=== PATIENT | female | born 1960 | race Caucasian/White ===

== ENCOUNTER 2019-12-09 13:57 | Emergency (ER) | payer OTHER, SELFPAY ==
[2019-12-09 14:19] VITALS: BP 187/96; PULSE 83; RESP 16; TEMP 36.6; O2SAT 94; BMI 35.3
--- NOTE | 2019-12-09 14:48 | ED_ITS ---
Entered by Bhavik Rosenberg LPN, acting as scribe for Alvin Arcos DO Dec 09, 2019 13:57 HPI - General Adult General: Chief complaint: General Medical Stated complaint: dizziness and passing out Time Seen by Provider: 12/09/19 14:49 Source: patient Mode of arrival: ambulatory Limitations: no limitations History of Present Illness: HPI narrative: 59 yo female presents stating she was at work this am and she started getting dizzy again . This has been frequent for her lately. In the am when she starts to get up from bed she passes out before she can get up. She takes no meds. BP usually runs 122 systolic, has been running in the 180's lately. Has taken BP meds in the past, didn't like the way it made her feel so she quit taking it. BP 188/116 during my exam. She currently reports a burning feeling in her head, also states it feels like someone is stabbing a hot needle in there, described in the left side of the head, behind the ear going down the neck, and near her left upper lip. She denies any chest pain at this time. She reports she has seen Dr. Richard in the past, was told she had a valve issue that may need looked at in the future. Onset (ago): day(s) Severity: moderate Exacerbating factors: movement (dizziness increases with movement, position change) Associated symptoms: Reports headache(s) and syncope Review of Systems General: Reports: 10 or more systems reviewed and unremarkable except in HPI and below Card: Reports: syncope Neuro: Reports: headache and dizziness PFSH ED PFSH: Statuses (acute, chronic, etc) shown below reflect problem list status as previously entered and may not be historically accurate Social History Smoking and tobacco status: never smoked Physical Exam Const: COMMON NORMALS: no apparent distress, average body habitus, oriented x3, no limitations, healthy appearing, alert and well nourished HENMT: COMMON NORMALS: normocephalic, head/scalp atraumatic, hearing grossly normal bilaterally, external ears normal, external nose normal and moist oral mucous membranes HEAD & SCALP: normocephalic and atraumatic NOSE: external nose normal EXTERNAL EAR: Yes external ears normal Eye: COMMON NORMALS: PERRL, EOMs intact bilaterally, conjunctivae normal and no scleral icterus CONJUNCTIVA: Yes conjunctivae normal PUPIL: Yes PERRL Neck/C-Spine: COMMON NORMALS: full ROM, no lymphadenopathy, supple, no meningeal signs, no JVD, thyroid normal and no carotid bruits THYROID: thyroid normal Chest: COMMONS NORMALS: inspection of chest normal and palpation of chest normal Resp: COMMON NORMALS: normal respiratory effort, no retractions, no use of accessory muscles, clear to auscultation bilaterally and percussion normal AUSCULTATION: clear to auscultation bilaterally PERCUSSION: percussion normal Cardio: COMMON NORMALS: no JVD, regular rate, regular rhythm, S1 normal heart sound, S2 normal heart sound, no gallops, no clicks, no murmurs, no rub and peripheral pulses 2+ throughout RATE: regular rate RHYTHM: regular rhythm HEART SOUNDS: S1 normal and S2 normal PERIPHERAL PULSES: pulses 2+ throughout GI: COMMON NORMALS: normal to inspection, nondistended, normoactive bowel sounds, soft to palpation, non-tender, no hepatosplenomegaly, no masses and no bruits PALPATION: Yes soft and Yes no hepatosplenomegaly : COMMON NORMALS: Yes no CVA tenderness and Yes external appearance normal BLADDER/KIDNEY EXAM: Yes no CVA tenderness Back/Pelvis: COMMON NORMALS: no CVA tenderness, thoracic and lumbar spine normal to inspection, no thoracic nor lumbar tenderness, thoraco-lumbar ROM normal and straight leg raise negative bilaterally Extremity: COMMON NORMALS: normal to inspection, full ROM, normal capillary refill, no joint enlargement, no clubbing, cyanosis or edema, no calf tenderness and no pedal edema Neuro: COMMON NORMALS: oriented x3 SENSORIUM/ORIENTATION: Yes alert MENINGEAL SIGNS: Yes no meningeal signs Skin: COMMON NORMALS: no rashes or lesions noted, no wounds, skin turgor normal, no jaundice, no petechiae and no mottling GENERAL SKIN EXAM: no rashes or lesions noted and turgor normal Course ED course: 1549: BP is 143/83, will hold Hydralazine. Vital Signs: Vital signs: Vital Signs Temperature 98 F 12/09/19 14:19 Pulse Rate 72 12/09/19 15:49 Respiratory Rate 15 12/09/19 15:49 Blood Pressure 143/83 12/09/19 15:49 Pulse Oximetry 95 12/09/19 15:49 [facility] - General Adult Lab Data: Labs: Lab Results 12/09/19 12/09/19 12/09/19 Range/Units 14:07 14:50 14:50 WBC 8.5 (4.0-10.0) 10^3/ uL RBC 4.66 (4.1-5.3) 10^6/u L Hgb 12.9 (11.5-15.3) g/dL Hct 39.8 (37.0-47.0) % MCV 85.4 (81-99) fL MCH 27.7 L (28.0-34.0) pg MCHC 32.4 (30.0-36.0) g/dL RDW 13.4 (12.1-15.1) % Plt Count 254 (130-400) 10^3/c mm MPV 11.2 H (7.4-10.4) fL Neut % (Auto) 62.5 % Lymph % (Auto) 25.8 % Woods % (Auto) 7.7 % Eos % (Auto) 2.4 % Baso % (Auto) 1.4 % Neut # (Auto) 5.3 (1.8-7.7) 10^3/u L Lymph # (Auto) 2.2 (0.8-4.8) 10^3/u L [place] # (Auto) 0.7 (0.2-0.9) 10^3/u L Eos # (Auto) 0.2 (0.0-0.8) 10^3/u L Baso # (Auto) 0.1 (0.0-0.1) 10^3/u L Nucleated RBC % (a uto) 0 % Nucleated RBCs # 0.0 /100WBC Sodium 141 (136-145) mmol/L Potassium 3.8 (3.5-5.1) mmol/L Chloride 104 (98-107) mmol/L Carbon Dioxide 24 (22-29) mmol/L Anion Gap 16.8 (5-19) BUN 15 (6-20) mg/dL Creatinine 0.6 (0.5-0.9) mg/dL GFR Calculation 102.7 (90-130) mL/min Glucose 92 (65-115) mg/dL Calcium 9.4 (8.5-10.5) mg/dL Total Bilirubin 0.3 (0.15-1.2) mg/dL AST 20 (0-32) U/L ALT 24 (0-33) U/L Alkaline Phosphata se 90 (35-105) IU/L NT-Pro-B Natriuret Pep (0-125) pg/mL Total Protein 7.7 (6.6-8.7) g/dL Albumin 4.6 (3.5-5.2) g/dL Globulin 3.1 (1.3-4.6) g/dL TSH (0.27-4.20) uIU/ mL Urine Color Yellow (Yellow) Urine Appearance Clear (CLEAR) Urine pH 7 (5-7) Ur Specific Gravit y 1.010 (1.005-1.030) Urine Protein Neg (Negative) Urine Glucose (UA) Norm (Normal) Urine Ketones Negative (Negative) Urine Occult Blood Neg (Negative) Urine Nitrate Negative (Negative) Urine Bilirubin Neg (NEGATIVE) Urine Urobilinogen 4 H (Negative) mg/dL Ur Leukocyte Mone ase Negative (Negative) 12/09/19 Range/Units 14:50 WBC (4.0-10.0) 10^3/ uL RBC (4.1-5.3) 10^6/u L Hgb (11.5-15.3) g/dL Hct (37.0-47.0) % MCV (81-99) fL MCH (28.0-34.0) pg MCHC (30.0-36.0) g/dL RDW (12.1-15.1) % Plt Count (130-400) 10^3/c mm MPV (7.4-10.4) fL Neut % (Auto) % Lymph % (Auto) % [place] % (Auto) % Eos % (Auto) % Baso % (Auto) % Neut # (Auto) (1.8-7.7) 10^3/u L Lymph # (Auto) (0.8-4.8) 10^3/u L [place] # (Auto) (0.2-0.9) 10^3/u L Eos # (Auto) (0.0-0.8) 10^3/u L Baso # (Auto) (0.0-0.1) 10^3/u L Nucleated RBC % (a uto) % Nucleated RBCs # /100WBC Sodium (136-145) mmol/L Potassium (3.5-5.1) mmol/L Chloride (98-107) mmol/L Carbon Dioxide (22-29) mmol/L Anion Gap (5-19) BUN (6-20) mg/dL Creatinine (0.5-0.9) mg/dL GFR Calculation (90-130) mL/min Glucose (65-115) mg/dL Calcium (8.5-10.5) mg/dL Total Bilirubin (0.15-1.2) mg/dL AST (0-32) U/L ALT (0-33) U/L Alkaline Phosphata se (35-105) IU/L NT-Pro-B Natriuret Pep 48 (0-125) pg/mL Total Protein (6.6-8.7) g/dL Albumin (3.5-5.2) g/dL Globulin (1.3-4.6) g/dL TSH 1.97 (0.27-4.20) uIU/ mL Urine Color (Yellow) Urine Appearance (CLEAR) Urine pH (5-7) Ur Specific Gravit y (1.005-1.030) Urine Protein (Negative) Urine Glucose (UA) (Normal) Urine Ketones (Negative) Urine Occult Blood (Negative) Urine Nitrate (Negative) Urine Bilirubin (NEGATIVE) Urine Urobilinogen (Negative) mg/dL Ur Leukocyte Mone ase (Negative) EKG Data^: EKG 1: Attestation: I personally reviewed and interpreted this EKG as follows: Prior EKG tracings: available for review Computer generated interpretation: Date of Service: 12/09/19 Procedure(s): ECG 12 lead EKG Accession Number(s): [id number] Report Number: [id number] Measurements Intervals [place] Rate: 85 P: 40 MD: 161 QRS: -12 QRSD: 101 T: 21 QT: 375 QTc: 446 SINUS RHYTHM VOLTAGE CRITERIA FOR LVH [MEETS CRITERIA IN ONE OF: R(aVL), S(V1), R(V5), R(V5/V6)+S(V1)] POSSIBLE ANTERIOR MYOCARDIAL INFARCTION [30 ms Q WAVE IN V3/V4, OR R < 0.2 mV IN V4], OF INDETERMINATE AGE Compared to ECG 11/25/2016 12:25:22 Myocardial infarct finding now present Sinus arrhythmia no longer present [email or web address] Coding Level of Care Code ED Post Acute Care Registered Nurse for Chg Fwd Exam Problem Focused The documentation recorded by the Chet burger Dani Elizabeth, LPN, accurately reflects the service I personally performed and the decisions made by Joseslyn main Donald P, DO Dec 09, 2019 13:57
[2019-12-09 14:55] LABS: Add Urine Microscopic? NO
[2019-12-09 14:58] LABS: Basophils # 0.1 10^3/uL (0.0-0.1); Basophils % 1.4 %; Eosinophils # 0.2 10^3/uL (0.0-0.8); Eosinophils % 2.4 %; Hematocrit 39.8 % (37.0-47.0); Hemoglobin 12.9 g/dL (11.5-15.3); Lymphocytes # 2.2 10^3/uL (0.8-4.8); Lymphocytes % 25.8 %; Mean Corpuscular HGB Conc 32.4 g/dL (30.0-36.0); Mean Corpuscular Hemoglobin 27.7 pg (28.0-34.0); Mean Corpuscular Volume 85.4 fL (81-99); Mean Platelet Volume 11.2 fL (7.4-10.4); Monocytes # 0.7 10^3/uL (0.2-0.9); Monocytes % 7.7 %; Neutrophils # 5.3 10^3/uL (1.8-7.7); Neutrophils % 62.5 %; Nucleated Red Blood Cells % 0 %; Platelet Count 254 10^3/cmm (130-400); Red Blood Count 4.66 10^6/uL (4.1-5.3); Red Cell Distribution Width 13.4 % (12.1-15.1); White Blood Count 8.5 10^3/uL (4.0-10.0)
--- NOTE | 2019-12-09 14:58 | ECG_ITS ---
Measurements Intervals [place] Rate: 85 P: 40 TX: 161 QRS: -12 QRSD: 101 T: 21 QT: 375 QTc: 446 SINUS RHYTHM VOLTAGE CRITERIA FOR LVH [MEETS CRITERIA IN ONE OF: R(aVL), S(V1), R(V5), R(V5/V6) +S(V1)] POSSIBLE ANTERIOR MYOCARDIAL INFARCTION [30 ms Q WAVE IN V3/V4, OR R < 0.2 mV IN V4], OF INDETERMINATE AGE Compared to ECG 11/25/2016 12:25:22 Myocardial infarct finding now present Sinus arrhythmia no longer present Electronically Signed On 12-09-2019 19:59:47 FLOOR SANDING MACHINE OPERATOR by William Richard M.D. [email or web address]
[2019-12-09 15:06] LABS: Bilirubin Urine Neg (NEGATIVE); Blood Urine Neg (Negative); Glucose Urine UA Norm (Normal); Ketones Urine Negative (Negative); Leukocyte Esterase Urine Negative (Negative); Nitrate Urine Negative (Negative); Protein Urine Neg (Negative); Urine Appearance Clear (CLEAR); Urine Color Yellow (Yellow); Urobilinogen Urine 4 mg/dL (Negative); pH Urine 7 (5-7)
[2019-12-09 15:11] LABS: Alanine Aminotransferase 24 U/L (0-33); Albumin Level 4.6 g/dL (3.5-5.2); Alkaline Phosphatase 90 IU/L (35-105); Anion Gap 16.8 (5-19); Aspartate Amino Transferase 20 U/L (0-32); Blood Urea Nitrogen 15 mg/dL (6-20); Calcium 9.4 mg/dL (8.5-10.5); Carbon Dioxide 24 mmol/L (22-29); Chloride 104 mmol/L (98-107); Globulin 3.1 g/dL (1.3-4.6); Glomerular Filtration Rate 102.7 mL/min (90-130); Glucose 92 mg/dL (65-115); Potassium 3.8 mmol/L (3.5-5.1); Sodium 141 mmol/L (136-145); Total Bilirubin 0.3 mg/dL (0.15-1.2); Total Protein 7.7 g/dL (6.6-8.7)
[2019-12-09 15:35] LABS: NT Pro B Type Natriuretic Pept 48 pg/mL (0-125); Thyroid Stimulating Hormone 1.97 uIU/mL (0.27-4.20)
[2019-12-09 15:49] VITALS: BP 143/83; PULSE 72; RESP 15; O2SAT 95
--- NOTE | 2019-12-09 16:05 | W.ED.GENADLT ---
HPI - General Adult General: Chief complaint: General Medical Stated complaint: dizziness and passing out Time Seen by Provider: 12/09/19 14:49 Source: patient Mode of arrival: ambulatory Limitations: no limitations History of Present Illness: Exacerbating factors: movement (dizziness increases with movement, position change) PFSH ED PFSH: Statuses (acute, chronic, etc) shown below reflect problem list status as previously entered and may not be historically accurate Social History Smoking and tobacco status: never smoked Course Vital Signs: Vital signs: Vital Signs Temperature 98 F 12/09/19 14:19 Pulse Rate 72 12/09/19 15:49 Respiratory Rate 15 12/09/19 15:49 Blood Pressure 143/83 12/09/19 15:49 Pulse Oximetry 95 12/09/19 15:49 MDM - General Adult Lab Data: Labs: Lab Results 12/09/19 12/09/19 12/09/19 Range/Units 14:07 14:50 14:50 WBC 8.5 (4.0-10.0) 10^3/ uL RBC 4.66 (4.1-5.3) 10^6/u L Hgb 12.9 (11.5-15.3) g/dL Hct 39.8 (37.0-47.0) % MCV 85.4 (81-99) fL MCH 27.7 L (28.0-34.0) pg MCHC 32.4 (30.0-36.0) g/dL RDW 13.4 (12.1-15.1) % Plt Count 254 (130-400) 10^3/c mm MPV 11.2 H (7.4-10.4) fL Neut % (Auto) 62.5 % Lymph % (Auto) 25.8 % [place] % (Auto) 7.7 % Eos % (Auto) 2.4 % Baso % (Auto) 1.4 % Neut # (Auto) 5.3 (1.8-7.7) 10^3/u L Lymph # (Auto) 2.2 (0.8-4.8) 10^3/u L [place] # (Auto) 0.7 (0.2-0.9) 10^3/u L Eos # (Auto) 0.2 (0.0-0.8) 10^3/u L Baso # (Auto) 0.1 (0.0-0.1) 10^3/u L Nucleated RBC % (a uto) 0 % Nucleated RBCs # 0.0 /100WBC Sodium 141 (136-145) mmol/L Potassium 3.8 (3.5-5.1) mmol/L Chloride 104 (98-107) mmol/L Carbon Dioxide 24 (22-29) mmol/L Anion Gap 16.8 (5-19) BUN 15 (6-20) mg/dL Creatinine 0.6 (0.5-0.9) mg/dL GFR Calculation 102.7 (90-130) mL/min Glucose 92 (65-115) mg/dL Calcium 9.4 (8.5-10.5) mg/dL Total Bilirubin 0.3 (0.15-1.2) mg/dL AST 20 (0-32) U/L ALT 24 (0-33) U/L Alkaline Phosphata se 90 (35-105) IU/L NT-Pro-B Natriuret Pep (0-125) pg/mL Total Protein 7.7 (6.6-8.7) g/dL Albumin 4.6 (3.5-5.2) g/dL Globulin 3.1 (1.3-4.6) g/dL TSH (0.27-4.20) uIU/ mL Urine Color Yellow (Yellow) Urine Appearance Clear (CLEAR) Urine pH 7 (5-7) Ur Specific Gravit y 1.010 (1.005-1.030) Urine Protein Neg (Negative) Urine Glucose (UA) Norm (Normal) Urine Ketones Negative (Negative) Urine Occult Blood Neg (Negative) Urine Nitrate Negative (Negative) Urine Bilirubin Neg (NEGATIVE) Urine Urobilinogen 4 H (Negative) mg/dL Ur Leukocyte Mone ase Negative (Negative) 12/09/19 Range/Units 14:50 WBC (4.0-10.0) 10^3/ uL RBC (4.1-5.3) 10^6/u L Hgb (11.5-15.3) g/dL Hct (37.0-47.0) % MCV (81-99) fL MCH (28.0-34.0) pg MCHC (30.0-36.0) g/dL RDW (12.1-15.1) % Plt Count (130-400) 10^3/c mm MPV (7.4-10.4) fL Neut % (Auto) % Lymph % (Auto) % [place] % (Auto) % Eos % (Auto) % Baso % (Auto) % Neut # (Auto) (1.8-7.7) 10^3/u L Lymph # (Auto) (0.8-4.8) 10^3/u L [place] # (Auto) (0.2-0.9) 10^3/u L Eos # (Auto) (0.0-0.8) 10^3/u L Baso # (Auto) (0.0-0.1) 10^3/u L Nucleated RBC % (a uto) % Nucleated RBCs # /100WBC Sodium (136-145) mmol/L Potassium (3.5-5.1) mmol/L Chloride (98-107) mmol/L Carbon Dioxide (22-29) mmol/L Anion Gap (5-19) BUN (6-20) mg/dL Creatinine (0.5-0.9) mg/dL GFR Calculation (90-130) mL/min Glucose (65-115) mg/dL Calcium (8.5-10.5) mg/dL Total Bilirubin (0.15-1.2) mg/dL AST (0-32) U/L ALT (0-33) U/L Alkaline Phosphata se (35-105) IU/L NT-Pro-B Natriuret Pep 48 (0-125) pg/mL Total Protein (6.6-8.7) g/dL Albumin (3.5-5.2) g/dL Globulin (1.3-4.6) g/dL TSH 1.97 (0.27-4.20) uIU/ mL Urine Color (Yellow) Urine Appearance (CLEAR) Urine pH (5-7) Ur Specific Gravit y (1.005-1.030) Urine Protein (Negative) Urine Glucose (UA) (Normal) Urine Ketones (Negative) Urine Occult Blood (Negative) Urine Nitrate (Negative) Urine Bilirubin (NEGATIVE) Urine Urobilinogen (Negative) mg/dL Ur Leukocyte Mone ase (Negative) Discharge Plan Discharge Patient Disposition: Home, Self-Care Clinical Impression: Hypertensive crisis Condition: Stable Prescriptions: New lisinopril 10 mg tablet 10 mg PO DAILY Qty: 10 RF: 0 Discharge Orders: Discharge Order (Routine); Ordered 12/09/19 Ordered By: Alvin Arcos Coding Level of Care Code ED Civil Preparedness Training Officer for Sandra Kingsley
[2019-12-09 16:17] VITALS: BP 144/76; PULSE 69; RESP 16; O2SAT 96
== END 2019-12-09 16:17 | disposition home or self-care (01) ==
PROVIDERS: Emergency Provider Family Medicine
DX: R42 Dizziness and giddiness (principal)
CPT/HCPCS: 36415; 80053; 81003; 83880; 84443; 85025; 93005; 96374; 99283; A9270

== ENCOUNTER → 2021-12-12 12:17 | Outpatient (BNVA) | payer SELFPAY | PROVIDERS: Visit Provider Nurse Practitioner | DX: Z20.828 Contact with and (suspected) exposure to other viral communicable diseases (principal) | CPT/HCPCS: 87635 ==

== ENCOUNTER → 2021-12-14 09:22 | Outpatient (BNVA) | payer SELFPAY | PROVIDERS: Visit Provider Nurse Practitioner | DX: Z20.822 Contact with and (suspected) exposure to COVID-19 (principal) | CPT/HCPCS: 87635 ==

== ENCOUNTER 2022-08-05 15:25 | Emergency (ER) | payer MEDICAID, SELFPAY ==
[2022-08-05] VITALS (8 sets, daily range): BP systolic 102–171; BP diastolic 62–82; PULSE 84–91; RESP 16–18; TEMP 36.5–36.9; O2SAT 92–97; BMI 42.5
--- NOTE | 2022-08-05 16:40 | ED_ITS ---
HPI - General Adult General: Chief complaint: Abdominal Pain Stated complaint: Abd pains Time Seen by Provider: 08/05/22 16:37 History of Present Illness: Patient is a 61-year-old female with a history of allergic reaction presenting to the emergency room for evaluation of abdominal b loating, abdominal pain and constipation for the last 2 weeks. Patient tells me that for last 3 months patient is has had intermittent midepigastric abdominal pain is worsening. In the last 2 weeks, patient has had significant increase in bloating. Patient denies any nausea/vomiting, fever/chills, chest pain, shortness breath palpitation or lightheadedness. Patient denies any other COVID complaints include cough, runny nose, sore throat fever or chills. Patient reports that she has had decreased swelling in the last 2 weeks. Patient denies any urinary complaints or complaints. Onset: 2 weeks ago acutely Duration:ongoing Location:home Severity:mild/moderate Associated symptoms: Deny chest pain, dyspnea, nausea, rash, palpitations or vomiting Review of Systems Const: Denies: fever(s) or chills Eyes: Denies: change in vision ENMT: Denies: mouth pain Card: Denies: chest pain or palpitations Resp: Denies: dyspnea or non-productive cough GI: Reports: abdominal pain (+midepigastric abd pain), constipation and other (+abdominal bloating); Denies: nausea, vomiting or diarrhea : Denies: dysuria Musc: Denies: extremity pain Skin/Breast: Denies: rash or new lesions Neuro: Denies: weakness in extremities Psych: Reports: other (Normal mood) Kyle/Lymph: Denies: easy bruising PFS ED PFSH: Medical History Allergic rhinitis Social History Smoking and tobacco status: never smoked Second hand smoke exposure: No Alcohol intake: never Desire information about alcohol rehabilitation?: No Desire information about substance/drug rehabilitation?: No Physical Exam Const: COMMON NORMALS: alert HENMT: COMMON NORMALS: atraumatic HEAD & SCALP: atraumatic MOUTH: moist mucous membranes not abnormal Eye: COMMON NORMALS: EOMs intact bilaterally and conjunctivae normal CONJUNCTIVA: Yes conjunctivae normal Neck/C-Spine: COMMON NORMALS: full ROM and supple Resp: COMMON NORMALS: normal respiratory effort and clear to auscultation bilaterally AUSCULTATION: clear to auscultation bilaterally Cardio: COMMON NORMALS: regular rate RATE: regular rate GI: COMMON NORMALS: Soft to palpation PALPATION: Yes Soft to palpation OTHER: +moderate mid-epiagastric focal TTP. NO guarding rebound, guarding, rigidity. No CVA tenderness to percussion. Neg Melo/Neg McBurney's point tenderness, no suprabupic tenderness to palpation. Extremity: COMMON NORMALS: full ROM Neuro: SENSORIUM/ORIENTATION: Yes alert MOTOR EXAM: No Abnormal motor strength present and Other motor observations present (no focal motor deficits) Psych: COMMON NORMALS: speech normal SPEECH: Yes normal speech MOOD & AFFECT: Yes euthymic mood Course Vital Signs: Vital signs: Vital Signs Temperature 97.7 F 08/05/22 15:27 Pulse Rate 91 08/05/22 15:27 Respiratory Rate 18 08/05/22 17:20 Blood Pressure 166/69 08/05/22 19:00 Pulse Oximetry 92 08/05/22 19:44 Oxygen Delivery Me thod 08/05/22 15:27 [facility] - General Adult Medical Decision Making Patient is a 61-year-old female with a history of allergic reaction presenting to the emergency room for evaluation of abdominal bloating, abdominal pain and constipation for the last 2 weeks. Exam, patient has mild epigastric tenderness to palpation. Patient is white count 9.8. Rest of labs include troponin and EKG within normal. X-ray chest appears to be clear. Patient had a GI cocktail reports feeling symptomatically improved. Given presentations of an abdominal bl oating, fullness and constipation for 2 and half weeks, I do not have suspicion for suspicion for other acute intra-abdominal pathology including SBO, biliary pathology, appendicitis, diverticulitis, or other emergent condition requiring surgery. Rx tylenol PRN abd pain, maalox/pepcid PRN dyspepsia, and zofran PRN nausea/vomiting, Miralax PRN constipation Disposition: Discharge. Patient counseled regarding diagnostic impression, treatment plan. Patient given ED strict return precautions to return for continuation, worsening, or development of new symptoms. Instructed to f/u w/ PCP regarding symptoms today. Patient verbalized understanding. Lab Data : 08/05/22 16:55 08/05/22 16:55 Radiology Impressions Chest X-Ray 08/05/22 17:35 IMPRESSION: No acute findings. Laboratory Results WBC 9.8 10^3/uL (4.0-10.0) 08/05/22 16:55 RBC 4.62 10^6/uL (4.1-5.3) 08/05/22 16:55 Hgb 13.5 g/dL (11.5-15.3) 08/05/22 16:55 Hct 41.0 % (37.0-47.0) 08/05/22 16:55 MCV 88.7 fl (81-99) 08/05/22 16:55 MCH 29.2 pg (28.0-34.0) 08/05/22 16:55 MCHC 32.9 g/dL (30.0-36.0) 08/05/22 16:55 RDW 13.6 % (12.1-15.1) 08/05/22 16:55 Plt Count 228 10^3/cmm (130-400) 08/05/22 16:55 MPV 10.9 fL (7.4-10.4) H 08/05/22 16:55 Neut % (Auto) 64.8 % 08/05/22 16:55 Lymph % (Auto) 21.6 % 08/05/22 16:55 [place] % (Auto) 7.6 % 08/05/22 16:55 Eos % (Auto) 4.1 % 08/05/22 16:55 Baso % (Auto) 1.1 % 08/05/22 16:55 Neut # (Auto) 6.34 10^3/uL (1.8-7.7) 08/05/22 16:55 Lymph # (Auto) 2.1 10^3/uL (0.8-4.8) 08/05/22 16:55 [place] # (Auto) 0.7 10^3/uL (0.2-0.9) 08/05/22 16:55 Eos # (Auto) 0.4 10^3/uL (0.0-0.8) 08/05/22 16:55 Baso # (Auto) 0.1 10^3/uL (0.0-0.1) 08/05/22 16:55 Nucleated RBC % (auto) 0 % 08/05/22 16:55 Nucleated RBCs # 0.0 /100WBC 08/05/22 16:55 Sodium 138 mmol/L (136-145) 08/05/22 16:55 Potassium 3.7 mmol/L (3.5-5.1) 08/05/22 16:55 Chloride 101 mmol/L (98-107) 08/05/22 16:55 Carbon Dioxide 27 mmol/L (22-29) 08/05/22 16:55 Anion Gap 13.7 (5-19) 08/05/22 16:55 BUN 12 mg/dL (8-23) 08/05/22 16:55 Creatinine 1.0 mg/dL (0.5-0.9) H 08/05/22 16:55 GFR Calculation 56.6 mL/min (90-130) L 08/05/22 16:55 Glucose 93 mg/dL (65-115) 08/05/22 16:55 Calculated Osmolality 285 mOsm/kg (285-295) 08/05/22 16:55 Calcium 8.9 mg/dL (8.5-10.5) 08/05/22 16:55 Total Bilirubin 0.4 mg/dL (0.15-1.2) 08/05/22 16:55 AST 18 U/L (0-32) 08/05/22 16:55 ALT 30 U/L (0-33) 08/05/22 16:55 Alkaline Phosphatase 82 U/L (35-105) 08/05/22 16:55 Troponin T Baseline 6 ng/L (0-10) 08/05/22 16:55 Total Protein 7.1 g/dL (6.6-8.7) 08/05/22 16:55 Albumin 4.2 g/dL (3.5-5.2) 08/05/22 16:55 Globulin 2.9 g/dL (1.3-4.6) 08/05/22 16:55 Lipase 22 U/L (13-60) 08/05/22 16:55 Urine Color Yellow (Yellow) 08/05/22 16:59 Urine Appearance Clear (CLEAR) 08/05/22 16:59 Urine pH 5 (5-7) 08/05/22 16:59 Ur Specific [place] 1.025 (1.005-1.030) 08/05/22 16:59 Urine Protein Neg (Negative) 08/05/22 16:59 Urine Glucose (UA) Norm (Normal) 08/05/22 16:59 Urine Ketones Negative (Negative) 08/05/22 16:59 Urine Blood Neg (Negative) 08/05/22 16:59 Urine Nitrate Negative (Negative) 08/05/22 16:59 Urine Bilirubin Neg (Negative) 08/05/22 16:59 Urine Urobilinogen 4 mg/dL (Negative) H 08/05/22 16:59 Ur Leukocyte Esterase Negative (Negative) 08/05/22 16:59 Imaging Data Other Imaging: Radiologist's impression: [id number] [address] XRay Report Signed Patient: Symone Mendoza Unit #: [id number] : 1960 Age/Sex: 61 / F ADM Date: 08/05/22 Loc: ER Room/Bed: Attending Dr: Ordering Provider/Ordering MD: Latonia Squires MD Date of Service: 08/05/22 Procedure(s): XR chest 1V portable [id number] Accession Number(s): [id number] Report Number: [id number] PROCEDURE INFORMATION: Exam: XR Chest Exam date and time: 08/05/2022 5:50 PM Age: 61 years old Clinical indication: Pain; Chest pressure; Additional info: Abd pain TECHNIQUE: Imaging protocol: Radiologic exam of the chest. Views: 1 view. COMPARISON: CR XR chest 1V [id number] 11/25/2016 12:36 PM FINDINGS: Lungs: Unremarkable. No consolidation. Pleural spaces: Unremarkable. No pleural effusion. No pneumothorax. Heart/Mediastinum: Unremarkable. No cardiomegaly. Bones/joints: Unremarkable. XR/XR chest 1V portable [id number] IMPRESSION: No acute findings. ? Dictated By: Ryne Gomez MD Signed By: Ryne Gomez MD Signed Date/Time: 08/05/221943 DD/ 49 Discharge Plan Discharge Patient Disposition: Home Clinical Impression: Abdominal pain, Constipation, Bloating Condition: Stable Prescriptions: New acetaminophen 500 mg tablet 500 mg PO Q6H PRN (Reason: pain) 5 Days Qty: 20 0RF Pepcid 20 mg tablet 20 mg PO BID PRN (Reason: abdominal pain) 10 Days Qty: 20 0RF ondansetron 4 mg tablet,disintegrating 4 mg PO TID PRN (Reason: nausea and vomiting) 4 Days Qty: 12 0RF Maalox Advanced 1,000-60 mg tablet,chewable 1 tab PO TID PRN (Reason: abdominal pain) 7 Days Qty: 21 0RF Miralax 17 gram/dose powder 8.5 g PO DAILY PRN (Reason: constipation) 28 Days Qty: 238 0RF No Action azithromycin 250 mg tablet See Rx Instructions PO .COMPLEX 5 Days Qty: 6 0RF Rx Instructions: take 500 mg today (day 1), then 250 mg for 4 days (days 2-5) PO 340b albuterol sulfate [Ventolin HFA] 90 mcg/actuation HFA aerosol inhaler 2 puff inhalation Q6H PRN (Reason: shortness of breath or wheezing) Qty: 8.5 0RF Rx Instructions: 340b prednisone 10 mg tablet 30 mg PO DAILY 5 Days Qty: 15 0RF Rx Instructions: 340b Discharge Orders: Discharge ED (Routine); Ordered 08/05/22 Ordered By: Latonia Squires Discharge Diet: Advance as tolerated Discharge Activity: Increase activity as tolerated Patient Instructions: Abdominal Pain (ED) Activity Restrictions/Additional Instructions: Please come back if you have any worsening abdominal pain, fever or chills, nausea or vomiting, diarrhea, blood in the stool, inability hold down liquid or solids, or any new concerning complaints. Coding Level of Care Code ED Academic Physician for Chg Fwd Exam Comprehensive
[2022-08-05 17:02] LABS: Basophils # 0.1 10^3/uL (0.0-0.1); Basophils % 1.1 %; Eosinophils # 0.4 10^3/uL (0.0-0.8); Eosinophils % 4.1 %; Hemoglobin 13.5 g/dL (11.5-15.3); Lymphocytes # 2.1 10^3/uL (0.8-4.8); Lymphocytes % 21.6 %; Mean Corpuscular HGB Conc 32.9 g/dL (30.0-36.0); Mean Corpuscular Hemoglobin 29.2 pg (28.0-34.0); Mean Corpuscular Volume 88.7 fl (81-99); Mean Platelet Volume 10.9 fL (7.4-10.4); Monocytes # 0.7 10^3/uL (0.2-0.9); Monocytes % 7.6 %; Neutrophils # 6.34 10^3/uL (1.8-7.7); Neutrophils % 64.8 %; Nucleated Red Blood Cells % 0 %; Platelet Count 228 10^3/cmm (130-400); Red Blood Count 4.62 10^6/uL (4.1-5.3); Red Cell Distribution Width 13.6 % (12.1-15.1); White Blood Count 9.8 10^3/uL (4.0-10.0)
[2022-08-05 17:04] LABS: Add Urine Microscopic? NO; Charge for UA Resulting for Rev
[2022-08-05 17:06] LABS: Bilirubin Urine Neg (Negative); Blood Urine Neg (Negative); Glucose Urine UA Norm (Normal); Ketones Urine Negative (Negative); Leukocyte Esterase Urine Negative (Negative); Nitrate Urine Negative (Negative); Protein Urine Neg (Negative); Specific Gravity, Urine 1.025 (1.005-1.030); Urine Appearance Clear (CLEAR); Urine Color Yellow (Yellow); Urobilinogen Urine 4 mg/dL (Negative); pH Urine 5 (5-7)
[2022-08-05] MEDS: sodium chloride 0.9% 500 ML 999 ML IV (17:17)
[2022-08-05] MEDS: ondansetron 2 mg/ML SDV 2 mL 4 MG IVP (17:20)
[2022-08-05] MEDS: morphine 4 mg/mL SDV 1 mL IVP (17:20)
[2022-08-05 17:24] LABS: Alanine Aminotransferase 30 U/L (0-33); Albumin Level 4.2 g/dL (3.5-5.2); Alkaline Phosphatase 82 U/L (35-105); Anion Gap 13.7 (5-19); Aspartate Amino Transferase 18 U/L (0-32); Blood Urea Nitrogen 12 mg/dL (8-23); Calcium 8.9 mg/dL (8.5-10.5); Carbon Dioxide 27 mmol/L (22-29); Chloride 101 mmol/L (98-107); Globulin 2.9 g/dL (1.3-4.6); Glomerular Filtration Rate 56.6 mL/min (90-130); Glucose 93 mg/dL (65-115); Lipase 22 U/L (13-60); Osmolality Calculated 285 mOsm/kg (285-295); Potassium 3.7 mmol/L (3.5-5.1); Sodium 138 mmol/L (136-145); Total Bilirubin 0.4 mg/dL (0.15-1.2); Total Protein 7.1 g/dL (6.6-8.7)
--- NOTE | 2022-08-05 17:35 | ECG_ITS ---
[facility] Test Date: 2022-08-05 Pat Name: Symone Mendoza Department: Room: Gender: Female Director Of Home Economics: : 1960 Requested By: Latonia Squires Order Number: [id number] Immanuel MD: William Richard M.D. Measurements Intervals [place] Rate: 85 P: 60 NM: 163 QRS: -2 QRSD: 92 T: 32 QT: 379 QTc: 453 Interpretive Statements SINUS RHYTHM VOLTAGE CRITERIA FOR LVH [MEETS CRITERIA IN ONE OF: R(aVL), S(V1), R(V5), R(V5/V6)+S(V1)] MINIMAL ST DEPRESSION [0.025+ mV ST DEPRESSION] Compared to ECG 12/09/2019 14:29:22 ST (T wave) deviation now present Myocardial infarct finding no longer present Electronically Signed On 08-05-2022 19:34:46 CDT by William Richard M.D. [id number]
--- NOTE | 2022-08-05 17:35 | XRR_ITS ---
PROCEDURE INFORMATION: Exam: XR Chest Exam date and time: 08/05/2022 5:50 PM Age: 61 years old Clinical indication: Pain; Chest pressure; Additional info: Abd pain TECHNIQUE: Imaging protocol: Radiologic exam of the chest. Views: 1 view. COMPARISON: CR XR chest 1V [id number] 11/25/2016 12:36 PM FINDINGS: Lungs: Unremarkable. No consolidation. Pleural spaces: Unremarkable. No pleural effusion. No pneumothorax. Heart/Mediastinum: Unremarkable. No cardiomegaly. Bones/joints: Unremarkable. XR/XR chest 1V portable [id number] IMPRESSION: No acute findings.
[2022-08-05 18:06] LABS: Troponin(5th) Baseline 6 ng/L (0-10)
[2022-08-05] MEDS: lidocaine 2% viscous 15 ML, aluminum-mag hydrox-simethicon 30 ML, sucralfate oral liq 1 GM PO (19:02)
== END 2022-08-05 21:08 | disposition home or self-care (01) ==
PROVIDERS: Family Medicine; Emergency Provider Emergency Medicine
DX: R10.9 Unspecified abdominal pain (principal); K59.00 Constipation, unspecified; R14.0 Abdominal distension (gaseous)
CPT/HCPCS: 71045; 80053; 81003; 83690; 84484; 85025; 93005; 96361; 96374; 96375; 99285; J2270; J2405; J7040

== ENCOUNTER 2022-10-10 10:55 | Emergency (ER) | payer MEDICAID, SELFPAY ==
[2022-10-10] VITALS (7 sets, daily range): BP systolic 116–203; BP diastolic 82–107; PULSE 81–101; RESP 16–19; O2SAT 95–98; BMI 42.1
--- NOTE | 2022-10-10 10:56 | W.ED.CHESTPA ---
HPI - Chest Pain General: Chief Complaint: Chest Pain Stated Complaint: CP/SOB Time Seen by Provider: 10/10/22 10:56 History of Present Illness: Ms. Mendoza is a 61-year-old lady presenting to the emergency department due to chest pain. Reports intermittent chest discomfort first noticed last night however seem to resolve and then came back while she was in clinic. Substernal with some radiation to the neck with an abnormal feeling associated with high blood pressure. She also endorses a progressively worsening orthopnea as well as lower extremity edema and weight gain. She has not been able to see a physician due to lack of insurance for a few years though denies known other cardiac risk factors. Intensity symptoms at worst was moderate to severe however is now improved with nitroglycerin and aspirin administered by EMS. No other specific changes in health, exacerbating, or alleviating factors identified. Onset (ago): day(s) Timing of current episode: episodic Prior episodes: Yes Onset: during rest Pain location: substernal Pain radiation: neck Severity: moderate Quality: heaviness Relieving factors: nitroglycerin Exacerbating factors: nothing Associated symptoms: Reports dyspnea and other Treatment prior to arrival: aspirin and nitroglycerin Review of Systems General: Reports: 10 or more systems reviewed and unremarkable except in HPI and below Resp: Reports: dyspnea PFSH ED PFSH: Medical History Allergic rhinitis Social History Smoking and tobacco status: never smoked Second hand smoke exposure: No Alcohol intake: never Desire information about alcohol rehabilitation?: No Desire information about substance/drug rehabilitation?: No Physical Exam Const: COMMON NORMALS: patient oriented x3 and alert GENERAL APPEARANCE: cooperative and well developed HENMT: COMMON NORMALS: normocephalic and atraumatic HEAD & SCALP: normocephalic and atraumatic Eye: COMMON NORMALS: conjunctivae normal CONJUNCTIVA: Yes conjunctivae normal SCLERA: sclerae normal Neck/C-Spine: COMMON NORMALS: supple GENERAL: Yes trachea midline Resp: COMMON NORMALS: normal respiratory effort EFFORT & INSPECTION: Yes able to speak in complete sentences Cardio: COMMON NORMALS: regular rate and regular rhythm RATE: regular rate RHYTHM: regular rhythm GI: COMMON NORMALS: Soft to palpation PALPATION: Yes Soft to palpation and No Tenderness to palpation present (GI) Extremity: GENERAL: Yes normal exam except as noted and Yes edema (Trace to 1+ bilateral symmetric lower extremities) Neuro: COMMON NORMALS: patient oriented x3, CN's II-XII intact bilaterally, moves all extremities, no focal motor deficits and no sensory deficits noted SENSORIUM/ORIENTATION: Yes alert and No Orientation impaired Psych: COMMON NORMALS: mental status grossly normal and Normal thought process present THOUGHT PROCESS: Normal thought process present Course Vital Signs: Vital signs: Vital Signs Pulse Rate 81 10/10/22 16:11 Respiratory Rate 16 10/10/22 16:11 Blood Pressure 147/107 10/10/22 16:11 Pulse Oximetry 97 10/10/22 16:11 Oxygen Delivery Me thod 10/10/22 10:57 [facility] - Chest Pain Medical Decision Making 61-year-old female presented to the emergency room due to intermittent chest pain. Exam as above. 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 EKG shows sinus rhythm with nonspecific ST segment abnormalities, no STEMI. Labs with no leukocytosis and normal hemoglobin. Metabolic panel without significant derangement. Delta troponin is negative. D-dimer negative. Chest x-ray with no lobar consolidation or pneumothorax. Given visual disturbance CT head ordered and negative for acute intracranial pathology. Given nonfocal neurologic exam I do not feel that advanced imaging is necessary. Most likely etiology of patient symptoms is chest pain. She is not low risk by heart score. She does have some evidence of clinical volume overload and will be prescribed Lasix and potassium supplementation. The results of ED evaluation were discussed with the patient including possible disposition options. I discussed risk stratification by heart score and estimated risk of major adverse cardiac events. The patient wishes to proceed with outpatient management. I discussed prescriptions and/or symptomatic cares (if applicable) including appropriate and responsible use, followup plan, and return precautions. The patient verbalized understanding and felt safe for discharge. Medical Records I reviewed the patient's medical records. Lab Data I reviewed the patient's lab results. 10/10/22 12:40 10/10/22 13:40 Radiology Impressions Chest X-Ray 10/10/22 11:15 Impression: Atherosclerosis. Head CT 10/10/22 11:15 IMPRESSION: 1. No evidence of intracranial hemorrhage or mass effect. 2. No acute intracranial findings. Laboratory Results WBC 9.7 10^3/uL (4.0-10.0) 10/10/22 12:40 RBC 4.73 10^6/uL (4.1-5.3) 10/10/22 12:40 Hgb 13.8 g/dL (11.5-15.3) 10/10/22 12:40 Hct 41.6 % (37.0-47.0) 10/10/22 12:40 MCV 87.9 fl (81-99) 10/10/22 12:40 MCH 29.2 pg (28.0-34.0) 10/10/22 12:40 MCHC 33.2 g/dL (30.0-36.0) 10/10/22 12:40 RDW 13.5 % (12.1-15.1) 10/10/22 12:40 Plt Count 227 10^3/cmm (130-400) 10/10/22 12:40 MPV 12.4 fL (7.4-10.4) H 10/10/22 12:40 Neut % (Auto) 67.9 % 10/10/22 12:40 Lymph % (Auto) 19.0 % 10/10/22 12:40 [place] % (Auto) 7.9 % 10/10/22 12:40 Eos % (Auto) 3.6 % 10/10/22 12:40 Baso % (Auto) 1.0 % 10/10/22 12:40 Neut # (Auto) 6.57 10^3/uL (1.8-7.7) 10/10/22 12:40 Lymph # (Auto) 1.8 10^3/uL (0.8-4.8) 10/10/22 12:40 [place] # (Auto) 0.8 10^3/uL (0.2-0.9) 10/10/22 12:40 Eos # (Auto) 0.4 10^3/uL (0.0-0.8) 10/10/22 12:40 Baso # (Auto) 0.1 10^3/uL (0.0-0.1) 10/10/22 12:40 Nucleated RBC % (auto) 0 % 10/10/22 12:40 Nucleated RBCs # 0.0 /100WBC 10/10/22 12:40 D-Dimer 0.45 ug/mIFEU (0-0.59) 10/10/22 12:40 Sodium 142 mmol/L (136-145) 10/10/22 13:40 Potassium 4.3 mmol/L (3.5-5.1) 10/10/22 13:40 Chloride 106 mmol/L (98-107) 10/10/22 13:40 Carbon Dioxide 26 mmol/L (22-29) 10/10/22 13:40 Anion Gap 14.3 (5-19) 10/10/22 13:40 BUN 10 mg/dL (8-23) 10/10/22 13:40 Creatinine 0.5 mg/dL (0.5-0.9) 10/10/22 13:40 GFR Calculation 125.9 mL/min (90-130) 10/10/22 13:40 Glucose 104 mg/dL (65-115) 10/10/22 13:40 Calculated Osmolality 293 mOsm/kg (285-295) 10/10/22 13:40 Calcium 6.9 mg/dL (8.5-10.5) L 10/10/22 13:40 Total Bilirubin 0.4 mg/dL (0.15-1.2) 10/10/22 13:40 AST 24 U/L (0-32) 10/10/22 13:40 ALT 39 U/L (0-33) H 10/10/22 13:40 Alkaline Phosphatase 81 U/L (35-105) 10/10/22 13:40 Troponin T Baseline 6 ng/L (0-10) 10/10/22 12:40 Troponin T 120 Minute 6.00 ng/L (0-10) 10/10/22 14:45 Delta Troponin T 0 ABS# (0-10) 10/10/22 14:45 NT-Pro-B Natriuret Pep 38 pg/mL (0-125) 10/10/22 13:40 Total Protein 7.0 g/dL (6.6-8.7) 10/10/22 13:40 Albumin 4.2 g/dL (3.5-5.2) 10/10/22 13:40 Globulin 2.8 g/dL (1.3-4.6) 10/10/22 13:40 Lipase 16 U/L (13-60) 10/10/22 13:40 Discharge Plan Discharge Patient Disposition: Home Clinical Impression: Chest pain, Leg edema, Hypertension Condition: Stable Prescriptions: New Lasix 20 mg tablet 20 mg PO DAILY Qty: 30 0RF potassium chloride 10 mEq capsule, extended release 10 meq PO DAILY Qty: 30 0RF Discharge Orders: Discharge ED (Routine); Ordered 10/10/22 Ordered By: Carlos Welsh Discharge Diet: Low Salt Discharge Activity: Increase activity as tolerated Patient Instructions: Furosemide (By mouth), Chest Pain (ED), Leg Edema (ED), Hypertension (ED) Activity Restrictions/Additional Instructions: Thank you for visiting the emergency department. You were seen and evaluated for high blood pressure associated with chest discomfort. The exact cause of your symptoms is unclear. As discussed, given risk factors and risk stratification, I believe that you do need further evaluation which we will proceed with in the outpatient setting. I will prescribe Lasix for your lower extremity edema as well as potassium supplementation. This requires repeat labs which should be arranged by your primary care provider within the next 5 to 7 days. Please follow-up with your primary care provider. Return to the emergency department for worsening symptoms or anything else that you are concerned about a feel needs emergency department evaluation. Coding Level of Care Code ED Roll Filler for Sandra Fwd Exam Comprehensive
--- NOTE | 2022-10-10 11:15 | XR_ITS ---
WS: [id number] Portable AP upright chest, 10/10/2022 Clinical Data: cp Comparison: Portable chest, 08/05/2022 Findings: No nodules, masses or effusions are seen. The heart is normal. The pulmonary vascularity is not increased. No pneumonia or pneumothorax is seen. The aortic arch and descending thoracic aorta s how mild tortuosity. XR/XR chest 1V portable [id number] Impression: Atherosclerosis.
--- NOTE | 2022-10-10 11:15 | CT_ITS ---
WS: [id number] CT HEAD TECHNIQUE: Noncontrast CT of the head obtained from the skullbase to the vertex. CLINICAL INFORMATION: blurry vision COMPARISON: None. DLP: 1063.[address] scans at [facility] use at least one of these dose optimization techniques: automated e xposure control; mA and/or kV adjustment per patient size (includes targeted exams where dose is matc hed to clinical indication); or iterative reconstruction. FINDINGS: No evidence of intracranial hemorrhage or mass effect. Ventricular system and basal cisterns are henry nt. Mild small vessel changes with mild parenchymal volume loss. No extra-axial fluid collections. No evidence of mass or mass effect. Paranasal sinuses and mastoid air cells are well aerated. .Normal visualized soft tissues. CT/CT head wo con* [id number] IMPRESSION: 1. No evidence of intracranial hemorrhage or mass effect. 2. No acute intracranial findings.
--- NOTE | 2022-10-10 12:09 | ECG_ITS ---
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 Measurements Intervals Adrian Rate: 80 P: 50 NE: 164 QRS: -3 QRSD: 90 T: 40 QT: 380 QTc: 439 Interpretive Statements SINUS RHYTHM VOLTAGE CRITERIA FOR LVH [MEETS CRITERIA IN ONE OF: R(aVL), S(V1), R(V5), R(V5/V6)+S(V1)] Compared to ECG 08/05/2022 17:42:46 ST (T wave) deviation no longer present Electronically Signed On 10-11-2022 0:02:30 FLIGHT TEST SHOP MECHANIC by William Richard M.D. [email or web address]/[id number]
--- NOTE | 2022-10-10 12:23 | PC.NURSE ---
PT PLACED ON CONTINUOUS NIBP, SPO2, AND CM
[2022-10-10 13:02] LABS: Basophils # 0.1 10^3/uL (0.0-0.1); Eosinophils # 0.4 10^3/uL (0.0-0.8); Eosinophils % 3.6 %; Hematocrit 41.6 % (37.0-47.0); Hemoglobin 13.8 g/dL (11.5-15.3); Lymphocytes # 1.8 10^3/uL (0.8-4.8); Mean Corpuscular HGB Conc 33.2 g/dL (30.0-36.0); Mean Corpuscular Hemoglobin 29.2 pg (28.0-34.0); Mean Corpuscular Volume 87.9 fl (81-99); Mean Platelet Volume 12.4 fL (7.4-10.4); Monocytes # 0.8 10^3/uL (0.2-0.9); Monocytes % 7.9 %; Neutrophils # 6.57 10^3/uL (1.8-7.7); Neutrophils % 67.9 %; Nucleated Red Blood Cells % 0 %; Platelet Count 227 10^3/cmm (130-400); Red Blood Count 4.73 10^6/uL (4.1-5.3); Red Cell Distribution Width 13.5 % (12.1-15.1); White Blood Count 9.7 10^3/uL (4.0-10.0)
[2022-10-10 13:23] LABS: Troponin(5th) Baseline 6 ng/L (0-10)
[2022-10-10 13:24] LABS: D Dimer 0.45 ug/mIFEU (0-0.59)
[2022-10-10] MEDS: hyDRALAzine 25 mg Tablet PO (13:49)
[2022-10-10 14:14] LABS: Alanine Aminotransferase 39 U/L (0-33); Albumin Level 4.2 g/dL (3.5-5.2); Alkaline Phosphatase 81 U/L (35-105); Anion Gap 14.3 (5-19); Aspartate Amino Transferase 24 U/L (0-32); Blood Urea Nitrogen 10 mg/dL (8-23); Calcium 6.9 mg/dL (8.5-10.5); Carbon Dioxide 26 mmol/L (22-29); Chloride 106 mmol/L (98-107); Globulin 2.8 g/dL (1.3-4.6); Glomerular Filtration Rate 125.9 mL/min (90-130); Glucose 104 mg/dL (65-115); Lipase 16 U/L (13-60); NT Pro B Type Natriuretic Pept 38 pg/mL (0-125); Osmolality Calculated 293 mOsm/kg (285-295); Potassium 4.3 mmol/L (3.5-5.1); Sodium 142 mmol/L (136-145); Total Bilirubin 0.4 mg/dL (0.15-1.2)
[2022-10-10 17:17] LABS: Troponin 5 2HR Delta 0 ABS# (0-10)
--- NOTE | 2022-10-11 15:06 | DCPLANNER ---
Addendum entered by Rosemarie Hale 01/15/23 08:33: Patient had a stress test scheduled - patient did attend Patient had an echo scheduled - patient did not attend Addendum entered by Rosemarie Hale 11/02/22 12:41: Patient has an outpatient stress test scheduled for November at 7:30. Centralized scheduling will call patient with appointment information. Original Note: general manager land department had message to schedule an outpatient stress test and echo cardiogram for patient. general manager land department faxed signed order to centralized scheduling, who will call patient with appointment information. general manager land department also sent notification that a stress test and echo was ordered from the ER physician.
== END 2022-10-10 16:13 | disposition home or self-care (01) ==
PROVIDERS: Emergency Provider Emergency Medicine
DX: R07.9 Chest pain, unspecified (principal); R60.0 Localized edema; I10 Essential (primary) hypertension
CPT/HCPCS: 70450; 71045; 80053; 83690; 83880; 84484; 85025; 85378; 93005; 99285

== ENCOUNTER 2022-11-30 07:30 | Outpatient (CLI) | payer MEDICAID, SELFPAY ==
--- NOTE | 2022-11-30 07:49 | USCV_ITS ---
Symone Mendoza Age: 62 Gender: F : 1960 Exam Date: 11/30/2022 08:06 Ordering Phys: Jami Reza Technologist: Guerrero Trinidad Exam Location: [facility] [place] Indication: Chest pain, pedal edema BP: 180 / 100 HR: 78 Rhythm: Sinus Technical Quality: Adequate MEASUREMENTS (Male / Female) Normal Values 2D ECHO LV Diastolic Diameter PLAX 4.4 cm 4.2 - 5.9 / 3.9 - 5.3 cm LV Systolic Diameter PLAX 2.4 cm IVS Diastolic Thickness 1.1 cm 0.6 - 1.0 / 0.6 - 0.9 cm IVS Systolic Thickness 1.3 cm LVPW Diastolic Thickness 1.2 cm 0.6 - 1.0 / 0.6 - 0.9 cm LVPW Systolic Thickness 1.5 cm LVOT Diameter 2.0 cm LV Ejection Fraction 2D Teich 75.2 % LV Ejection Fraction MOD 2C 78.2 % LV Ejection Fraction 2C AL 78.6 % LA Diameter 3.5 cm Aorta at Sinotubular Diameter 2.5 cm IVC Diameter 1.7 cm M-MODE Aortic Annulus Diameter 3.9 cm LA Ao Ratio MM 0.9 MV E Point Septal Separation 0.8 cm DOPPLER AV Peak Velocity 160.0 cm/s LVOT Peak Velocity 109.0 cm/s AV Area Cont Eq vti 2.7 cm squared AV Area Cont Eq pk 2.2 cm squared MV Area PHT 5.0 cm squared Mitral E to A Ratio 0.9 MV E' Velocity 86.0 cm/s Mitral E to LV E' Septal Ratio 8.2 TR Peak Velocity 126.0 cm/s TR Peak Gradient 6.4 mmHg TV Peak E Velocity 109.0 cm/s Right Atrial Pressure 3.0 mmHg Pulmonary Artery Systolic Pressu 9.4 mmHg RV Acceleration Time 0.2 s FINDINGS Left Ventricle Normal left ventricular size, systolic function and wall thickness, with no regional wall motion abnormalities. Left ventricular ejection fraction is estimated at 65 %. Normal diastolic function. Right Ventricle Normal right ventricular size and systolic function. Right Atrium Normal right atrial size. Left Atrium Normal left atrial size. Mitral Valve Structurally normal mitral valve. No mitral valve stenosis. Trace mitral valve regurgitation. Aortic Valve Structurally normal trileaflet aortic valve. No aortic valve stenosis. No aortic valve regurgitation. Tricuspid Valve Structurally normal tricuspid valve. No tricuspid valve stenosis. Trace tricuspid valve regurgitation. Pulmonic Valve Pulmonic valve not well visualized. No pulmonary valve stenosis. Trace pulmonary valve regurgitation. Pericardium No pericardial effusion. Aorta Normal size aortic root and proximal ascending aorta. IVC Normal sized inferior vena cava. CONCLUSIONS 1. Normal left ventricular size, systolic function and wall thickness, with no regional wall motion abnormalities. Left ventricular ejection fraction is estimated at 65 %. Normal diastolic function. 2. No significant valvular abnormality. 3. No prior similar studies to compare. Alecia Zaragoza MD (Electronically Signed) Final Date: 01 December 2022 18:37 S
--- NOTE | 2022-11-30 07:52 | ECG_ITS ---
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 Interpretive Statements NAME OF STUDY: LEXISCAN SESTAMIBI STRESS TEST INDICATION: [Chest Pain, ] Procedure: At the baseline, the blood pressure was 120/81 mmHg with a heart rate of 87 bpm. The electrocardiogram showed normal sinus rhythm, normal axis with normal ST and T's. The Lexiscan was infused over a period of 20 seconds. A total of 0.4 mg of Lexiscan was infused. The stress phase was continued for a total of 5 minutes. Heart rate was at the end of stress phase was 86 bpm and a blood pressure of 182/82 mmHg. The EKG at the peak infusion revealed normal sinus rhythm with no significant ST-T wave changes. Sestamibi was injected 20 seconds after the Lexiscan infusion. Blood pressure at the end of recovery phase was 192/87 mmHg with a heart rate of 90 bpm. Conclusion: 1. Normal EKG response to Lexiscan infusion 2. No Lexiscan induced chest pain or cardiac arrhythmia. 3. Normal blood pressure and heart rate response. 4. Sestamibi/sestamibi perfusion scan pending; see separate report. Electronically Signed On 12-23-2022 22:56:50 LOSS PREVENTION LEAD by Trenton Her M.D. [id number]
--- NOTE | 2022-11-30 07:53 | NMCV_ITS ---
NM deanna perf SPECT r/s* [id number] Symone Mendoza Age: 62 Gender: F : 1960 Exam Date: 11/30/2022 09:23 Ordering Phys: Jami Reza Technologist: JACKIE Melara Exam Location: [facility] Indications: CHEST PAIN STRESS TEST Please [facility] IMAGE PROTOCOL Rest/Stress 1 Lexiscan Day Radiopharmaceutical Dose (mCi) Administration Site Administered by Rest: Tc-99m 10.7 IV JACKIE Fernandez Sestamibi Stress:Tc-99m 33.0 IV JACKIE Fernandez Sestamibi Rest: 30-Nov-2022 60 Discovery 630 Stress: 30-Nov-2022 30 Discovery 630 0.4mg Lexiscan. Images obtained in supine and prone position. SPECT RESULTS Technical Quality: Excellent Raw Data Analysis: Normal Image Corrections: No attenuation or motion correction applied Summed Stress Score: 1 Summed Rest Score: 0 Summed Difference Score: 1 PERFUSION FINDINGS There is a small in size, reversible perfusion defect in the apical lateral wall. This is consistent with small area of ischemia in the left circumflex area territory. FUNCTIONAL RESULTS (calculated via Gated SPECT) Stress Image LV EF (%): 75 Stress EDV (mL):88 TID: 0.87 Stress ESV (mL):22 FUNCTIONAL FINDINGS: There is normal left ventricular systolic function. IMPRESSIONS 1. Abnormal myocardial perfusion imaging with small sized perfusion defect noted in the left circumflex artery territory. 2. LV systolic function is normal Trenton Her MD (Electronically Signed) Final Date: 02 December 2022 10:37 S
[2022-11-30 08:41] VITALS: BMI 42.5
[2022-11-30] MEDS: regadenoson 0.4 Mg/5 ml Syringe IVP (10:07)
[2022-11-30 10:34] VITALS: BP 192/87; PULSE 92
== END 2022-11-30 07:31 | disposition home or self-care (01) ==
PROVIDERS: PCP Physician Assistant; Visit Provider Physician Assistant
DX: R07.9 Chest pain, unspecified (principal)
CPT/HCPCS: 36415; 78452; 93017; 93306; 96374; A9500; J2785

== ENCOUNTER 2022-12-11 12:08 | Outpatient (CLI) | payer MEDICAID, SELFPAY ==
--- NOTE | 2022-12-11 12:15 | USCV_ITS ---
Symone Mendoza Age: 62 Gender: F : 1960 Exam Date: 12/11/2022 13:22 Ordering Phys: Cely Awad CEMENT GUN OPERATOR CEMENT GUN OPERATOR Technologist: Baljit Carson Exam Location: [facility] [place] Indication: pain RIGHT LEFT Brachial 507852.7 mmHg Brachial 157.00 mmHg 5 Pressure (mmHg) Waveform Pressure (mmHg) Waveform 162.00 SENIOR PACKAGING ENGINEER 169.00 172.00 DPA 175.00 1.00 Ankle/Brachial Index 1.00 FINDINGS normal us Resting PACO 1.0 bilaterally CONCLUSIONS Normal resting PACO bilaterally suggesting no significant arterial obstruction Dr William Richard MD [facility] (Electronically Signed) Final Date: 11 December 2022 16:48 S
== END 2022-12-11 12:09 | disposition home or self-care (01) ==
LOC: RAD 12:08
PROVIDERS: PCP Physician Assistant; Visit Provider Nurse Practitioner Family
DX: M79.605 Pain in left leg (principal); M79.604 Pain in right leg
CPT/HCPCS: 93922

== ENCOUNTER 2023-03-21 09:56 | Outpatient (CLI) | payer MEDICAID, SELFPAY ==
--- NOTE | 2023-03-21 10:03 | MR_ITS ---
WS: [id number] MRI LEFT SHOULDER HISTORY: TEAR OF L ROTATOR CUFF COMPARISON: Shoulder radiograph 02/22/2023 TECHNIQUE: Multiplanar sequences of the shoulder joint are submitted. Mild AC joint arthritis. Small osteophytes encroach towards the supraspinatus muscle. Small amount of fluid in the subacromial and subdeltoid bursa. No os acromion. Normal biceps tendon. Small amount of increased fluid within the biceps tendon sheath. Mild narrowing of the glenohumeral joint. Mild loss of cartilage surrounding the humeral head. Mild l oss of cartilage involving the glenoid. Increased T2 signal with loss of the normal architecture of t he distal tendon supraspinatus. There is mild thickening of the tendon and suspect this is predominan tly tendinopathy. Articular surface near the insertion site may be present but is very small. Mild te ndinopathy in the distal infraspinatus tendon. No muscle atrophy or edema. Increased fluid signal in the central distal subscapularis tendon. Small amount of fluid in the subscapularis recess. Small volodymyr nt effusion surrounding the humeral head. No marrow edema or fracture. MR/MR shoulder LT wo con* [id number] IMPRESSION: 1. Moderate distal supraspinatus tendinopathy. Mild thickening of the tendon. There is also an associated very small, 2 mm suspected articular surface tear. No muscle atrophy or tendon retraction. 2. Moderate tendinopathy increased signal within the distal subscapularis ten don from tendinopathy. Mild tendinopathy infraspinatus tendon. 3. Mild AC joint arthritis with encroachment upon the supraspinatus muscle. 4. Mild biceps tenosynovitis. 5. Additional increased fluid signal in the central distal subscapularis tendo n. This can be seen with occult intrasubstance tears.
== END 2023-03-21 09:57 | disposition home or self-care (01) ==
LOC: RAD 09:57
PROVIDERS: PCP Physician Assistant; Visit Provider Physician Assistant
DX: M75.102 Unspecified rotator cuff tear or rupture of left shoulder, not specified as traumatic (principal); M19.012 Primary osteoarthritis, left shoulder; M65.822 Other synovitis and tenosynovitis, left upper arm
CPT/HCPCS: 73221

== ENCOUNTER → 2023-04-23 09:47 | Outpatient (BNVA) | payer MEDICAID, SELFPAY | PROVIDERS: PCP Physician Assistant; Referring Provider Physician Assistant; Visit Provider Specialist | DX: M75.102 Unspecified rotator cuff tear or rupture of left shoulder, not specified as traumatic (principal); M12.812 Other specific arthropathies, not elsewhere classified, left shoulder; M75.02 Adhesive capsulitis of left shoulder | CPT/HCPCS: 73030 ==

== ENCOUNTER 2023-05-12 15:53 | Emergency (ER) | payer MEDICAID, SELFPAY ==
[2023-05-12] VITALS (8 sets, daily range): BP systolic 146–225; BP diastolic 67–126; PULSE 73–101; RESP 18–19; TEMP 36.7–36.9; O2SAT 94–99; BMI 42.5
--- NOTE | 2023-05-12 16:21 | ECG_ITS ---
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 Measurements Intervals Cameron Rate: 92 P: 37 HI: 160 QRS: -13 QRSD: 90 T: 27 QT: 356 QTc: 442 Interpretive Statements SINUS RHYTHM WITH OCCASIONAL VENTRICULAR PREMATURE COMPLEXES LOW QRS VOLTAGE IN PRECORDIAL LEADS [QRS DEFLECTION < 1.0 mV IN CHEST LEADS] VOLTAGE CRITERIA FOR LVH [MEETS CRITERIA IN ONE OF: R(aVL), S(V1), R(V5), R(V5/V6)+S(V1)] Compared to ECG 10/10/2022 12:09:22 Ventricular premature complex(es) now present Low QRS voltage now present Electronically Signed On 05-13-2023 20:56:03 CDT by William Richard M.D. [id number]
--- NOTE | 2023-05-12 16:31 | W.ED.CHESTPA ---
HPI - Chest Pain General: Chief Complaint: Chest Pain Stated Complaint: chest pain Time Seen by Provider: 05/12/23 16:25 History of Present Illness: 62-year-old female presented emergency room with chest pain that started within the past few days patient described the pain as sharp aching sensation mostly on the left side of her chest radiating to the left arm. Patient is any fall, shortness of breath, cough, coughing up blood or vomiting blood. Associated symptoms: Deny abdominal pain, dyspnea, fever(s), nausea, palpitations or vomiting Review of Systems General: Reports: 10 or more systems reviewed and unremarkable except in HPI and below Const: Denies: fever(s), chills or body aches Card: Reports: chest pain; Denies: palpitations, irregular heart rhythm, swelling of feet/ankles or lightheadedness Resp: Denies: dyspnea, productive cough, non-productive cough, wheezing, stridor, pain on inspiration or change in phlegm color GI: Denies: abdominal pain, nausea, vomiting or hematemesis : Denies: flank pain, difficulty voiding or dysuria Musc: Reports: extremity pain (chronic left shoulder pain ); Denies: joint pain, joint swelling or joint redness Skin/Breast: Denies: rash, pruritus, erythema, photosensitivity or skin pain PFSH ED PFSH: Medical History Allergic rhinitis HTN (hypertension) Hyperlipemia Family History Father Cancer Mother Cancer Brother Cancer Social History Smoking and tobacco status: never smoked Second hand smoke exposure: No Alcohol intake: never Desire information about alcohol rehabilitation?: No Substance/Drug Use: never Desire information about substance/drug rehabilitation?: No Physical Exam Const: COMMON NORMALS: no acute distress, average body habitus, patient oriented x3, no limitations, healthy appearing, alert and well nourished Neck/C-Spine: COMMON NORMALS: full ROM, no lymphadenopathy, supple, no meningeal signs, no JVD, Thyroid normal and No carotid bruits THYROID: Thyroid normal Chest: CHEST: Yes abnormal inspection of the chest and Yes localized rib tenderness with anteroposterior compression (Feels left chest tenderness on palpation. No rash or lesions.) Cardio: COMMON NORMALS: no JVD Neuro: COMMON NORMALS: patient oriented x3 SENSORIUM/ORIENTATION: Yes alert MENINGEAL SIGNS: Yes no meningeal signs Course Vital Signs: Vital signs: Vital Signs Temperature 98.4 F 05/12/23 18:45 Pulse Rate 73 05/12/23 21:27 Respiratory Rate 18 05/12/23 21:27 Blood Pressure 165/79 05/12/23 21:27 Pulse Oximetry 94 05/12/23 21:27 Oxygen Delivery Me thod Room Air 05/12/23 17:00 MDM - Chest Pain Medical Decision Making Patient made comfortable emergency room. Patient was given aspirin, nitro,. Patient had serial cardiac enzymes which were within normal limits. X-ray was done and reviewed. Discussed need to follow-up with urologist for further evaluation and treatment. Differential Diagnosis Likely acute massive pulmonary embolism, acute respiratory failure, acute myocardial infarction, cardiac arrest and sudden cardiac Lab Data 05/12/23 16:57 05/12/23 17:55 Radiology Impressions Chest X-Ray 05/12/23 17:58 IMPRESSION: No acute findings. Laboratory Results WBC 12.7 10^3/uL (4.0-10.0) H 05/12/23 16:57 RBC 4.98 10^6/uL (4.1-5.3) 05/12/23 16:57 Hgb 14.1 g/dL (11.5-15.3) 05/12/23 16:57 Hct 44.8 % (37.0-47.0) 05/12/23 16:57 MCV 90.0 fl (81-99) 05/12/23 16:57 MCH 28.3 pg (28.0-34.0) 05/12/23 16:57 MCHC 31.5 g/dL (30.0-36.0) 05/12/23 16:57 RDW 14.4 % (12.1-15.1) 05/12/23 16:57 Plt Count 144 10^3/cmm (130-400) 05/12/23 16:57 MPV 12.5 fL (7.4-10.4) H 05/12/23 16:57 Neut % (Auto) 69.1 % 05/12/23 16:57 Lymph % (Auto) 19.1 % 05/12/23 16:57 Story % (Auto) 7.9 % 05/12/23 16:57 Eos % (Auto) 2.4 % 05/12/23 16:57 Baso % (Auto) 0.9 % 05/12/23 16:57 Neut # (Auto) 8.76 10^3/uL (1.8-7.7) H 05/12/23 16:57 Lymph # (Auto) 2.4 10^3/uL (0.8-4.8) 05/12/23 16:57 [place] # (Auto) 1.0 10^3/uL (0.2-0.9) H 05/12/23 16:57 Eos # (Auto) 0.3 10^3/uL (0.0-0.8) 05/12/23 16:57 Baso # (Auto) 0.1 10^3/uL (0.0-0.1) 05/12/23 16:57 Nucleated RBC % (auto) 0 % 05/12/23 16:57 Nucleated RBCs # 0.0 /100WBC 05/12/23 16:57 D-Dimer 0.47 ug/mIFEU (0-0.59) 05/12/23 16:57 Sodium 140 mmol/L (136-145) 05/12/23 17:55 Potassium 3.9 mmol/L (3.5-5.1) 05/12/23 17:55 Chloride 105 mmol/L (98-107) 05/12/23 17:55 Carbon Dioxide 25 mmol/L (22-29) 05/12/23 17:55 Anion Gap 13.9 (5-19) 05/12/23 17:55 BUN 13 mg/dL (8-23) 05/12/23 17:55 Creatinine 0.7 mg/dL (0.5-0.9) 05/12/23 17:55 GFR Calculation 85.1 mL/min (90-130) L 05/12/23 17:55 Glucose 81 mg/dL (65-115) 05/12/23 17:55 Calculated Osmolality 289 mOsm/kg (285-295) 05/12/23 17:55 Calcium 8.8 mg/dL (8.5-10.5) 05/12/23 17:55 Total Bilirubin 0.3 mg/dL (0.15-1.2) 05/12/23 17:55 AST 15 U/L (0-32) 05/12/23 17:55 ALT 22 U/L (0-33) 05/12/23 17:55 Alkaline Phosphatase 97 U/L (35-105) 05/12/23 17:55 Troponin T Baseline 6 ng/L (0-10) 05/12/23 17:55 Troponin T 120 Minute 6.00 ng/L (0-10) 05/12/23 20:25 Delta Troponin T 0 ABS# (0-10) 05/12/23 20:25 NT-Pro-B Natriuret Pep 71 pg/mL (0-125) 05/12/23 17:55 Total Protein 6.8 g/dL (6.6-8.7) 05/12/23 17:55 Albumin 3.8 g/dL (3.5-5.2) 05/12/23 17:55 Globulin 3.0 g/dL (1.3-4.6) 05/12/23 17:55 Discharge Plan Discharge Patient Disposition: Home Clinical Impression: Chest pain, HTN (hypertension), Atypical chest pain Condition: Stable Prescriptions: No Action Lasix 20 mg tablet 40 mg PO DAILY rosuvastatin 20 mg tablet 20 mg PO DAILY pantoprazole [Protonix] 20 mg tablet,delayed release (DR/EC) 20 mg PO BID hydrocodone-acetaminophen 7.5-325 mg tablet 1 tab PO Q8H PRN (Reason: Pain) meloxicam 7.5 mg tablet 7.5 mg PO DAILY potassium chloride 10 mEq capsule, extended release 10 meq PO DAILY Qty: 30 0RF Discharge Orders: Discharge ED (Routine); Ordered 05/12/23 Ordered By: Krista Fox Referrals: Jami Reza PA [Primary Care Provider] - Discharge Diet: Advance as tolerated Discharge Activity: Resume usual activity Patient Instructions: Opioid Safety, Pain Management Coding Level of Care Code ED Landscape Supervisor for Sandra Kingsley
--- NOTE | 2023-05-12 16:45 | PC.PHAR ---
PT STATES SHE SHOULD BE TAKING THE FOLLOWING MEDICATIONS BUT HAS NOT BEEN COMPLIANT. LASIX 40 MG DAILY, LISINOPRIL 20 MG DAILY, POTASSIUM CHL 10 MEQ DAILY, ROSUVASTATIN 20 MG DAILY. PT STATES SHE HAD A CORTOSONE SHOT 2 WEEKS AGO
[2023-05-12] MEDS: aspirin 81 mg Chew Tablet 324 MG PO (16:59)
[2023-05-12] MEDS: nitroglycerin 1 gm/inch oint Pkt 0.5 INCH TOPICAL (17:03)
[2023-05-12 17:19] LABS: Basophils # 0.1 10^3/uL (0.0-0.1); Basophils % 0.9 %; Eosinophils # 0.3 10^3/uL (0.0-0.8); Eosinophils % 2.4 %; Hematocrit 44.8 % (37.0-47.0); Hemoglobin 14.1 g/dL (11.5-15.3); Lymphocytes # 2.4 10^3/uL (0.8-4.8); Lymphocytes % 19.1 %; Mean Corpuscular HGB Conc 31.5 g/dL (30.0-36.0); Mean Corpuscular Hemoglobin 28.3 pg (28.0-34.0); Mean Platelet Volume 12.5 fL (7.4-10.4); Monocytes % 7.9 %; Neutrophils # 8.76 10^3/uL (1.8-7.7); Neutrophils % 69.1 %; Nucleated Red Blood Cells % 0 %; Platelet Count 144 10^3/cmm (130-400); Red Blood Count 4.98 10^6/uL (4.1-5.3); Red Cell Distribution Width 14.4 % (12.1-15.1); White Blood Count 12.7 10^3/uL (4.0-10.0)
[2023-05-12 17:31] LABS: D Dimer 0.47 ug/mIFEU (0-0.59)
--- NOTE | 2023-05-12 17:58 | XRR_ITS ---
PROCEDURE INFORMATION: Exam: XR Chest Exam date and time: 05/12/2023 6:06 PM Age: 62 years old Clinical indication: Pain; Chest pressure; Additional info: Chest pain TECHNIQUE: Imaging protocol: Radiologic exam of the chest. Views: 1 view. COMPARISON: CR XR chest 1V portable [id number] 10/10/2022 11:23 AM FINDINGS: Lungs: Unremarkable. No consolidation. Pleural spaces: Unremarkable. No pleural effusion. No pneumothorax. Heart/Mediastinum: Unremarkable. No cardiomegaly. Bones/joints: Unremarkable. XR/XR chest 1V [id number] IMPRESSION: No acute findings.
[2023-05-12] MEDS: morphine 4 mg/mL SDV 1 mL IVP (18:08)
[2023-05-12] MEDS: ondansetron 2 mg/ML SDV 2 mL 4 MG IVP (18:09)
[2023-05-12 18:24] LABS: Troponin(5th) Baseline 6 ng/L (0-10)
--- NOTE | 2023-05-12 18:26 | ECG_ITS ---
[facility] Test Date: 2023-05-12 Pat Name: Symone Mendoza Department: Room: Gender: Female Lead Level Designer: : 1960 Requested By: Krista Choi Order Number: [id number] Immanuel MD: William Richard M.D. Measurements Intervals [place] Rate: 85 P: 45 AL: 159 QRS: -17 QRSD: 86 T: 7 QT: 371 QTc: 443 Interpretive Statements SINUS RHYTHM WITH OCCASIONAL VENTRICULAR PREMATURE COMPLEXES VOLTAGE CRITERIA FOR LVH [MEETS CRITERIA IN ONE OF: R(aVL), S(V1), R(V5), R(V5/V6)+S(V1)] MINIMAL ST DEPRESSION [0.025+ mV ST DEPRESSION] Compared to ECG 05/12/2023 16:21:41 ST (T wave) deviation now present Electronically Signed On 05-13-2023 21:08:45 CDT by William Richard M.D. [id number]
[2023-05-12 18:33] LABS: Alanine Aminotransferase 22 U/L (0-33); Albumin Level 3.8 g/dL (3.5-5.2); Alkaline Phosphatase 97 U/L (35-105); Anion Gap 13.9 (5-19); Aspartate Amino Transferase 15 U/L (0-32); Blood Urea Nitrogen 13 mg/dL (8-23); Calcium 8.8 mg/dL (8.5-10.5); Carbon Dioxide 25 mmol/L (22-29); Chloride 105 mmol/L (98-107); Glomerular Filtration Rate 85.1 mL/min (90-130); Glucose 81 mg/dL (65-115); NT Pro B Type Natriuretic Pept 71 pg/mL (0-125); Osmolality Calculated 289 mOsm/kg (285-295); Potassium 3.9 mmol/L (3.5-5.1); Sodium 140 mmol/L (136-145); Total Bilirubin 0.3 mg/dL (0.15-1.2); Total Protein 6.8 g/dL (6.6-8.7)
[2023-05-12 21:01] LABS: Troponin 5 2HR Delta 0 ABS# (0-10)
== END 2023-05-12 21:24 | disposition home or self-care (01) ==
PROVIDERS: Emergency Provider Family Medicine; PCP Physician Assistant
DX: R07.89 Other chest pain (principal); I10 Essential (primary) hypertension; E78.5 Hyperlipidemia, unspecified
CPT/HCPCS: 36415; 71045; 80053; 83880; 84484; 85025; 85378; 93005; 96374; 96375; 99285; J2270; J2405

== ENCOUNTER 2023-06-12 09:21 | Outpatient (RCR) | payer MEDICAID, SELFPAY | END 2023-06-28 23:59 | disposition home or self-care (01) | LOC: SPT 09:21 | PROVIDERS: PCP Physician Assistant; Visit Provider Physician Assistant | DX: M25.512 Pain in left shoulder (principal); G89.29 Other chronic pain | CPT/HCPCS: 97110; 97161; G0283 ==

== ENCOUNTER 2023-06-29 06:00 | Outpatient (RCR) | payer MEDICAID, SELFPAY | END 2023-07-28 23:59 | disposition home or self-care (01) | LOC: SPT 06:00 | PROVIDERS: PCP Physician Assistant; Visit Provider Physician Assistant | DX: M25.512 Pain in left shoulder (principal); G89.29 Other chronic pain | CPT/HCPCS: 97110; G0283 ==

== ENCOUNTER 2023-07-18 10:49 | Emergency (ER) | payer MEDICAID, SELFPAY ==
[2023-07-18] VITALS (7 sets, daily range): BP systolic 163–187; BP diastolic 89–120; PULSE 87–92; RESP 16–19; O2SAT 96–99; BMI 42.5
--- NOTE | 2023-07-18 11:20 | XR_ITS ---
WS: [id number] XR chest 1V portable [id number] REASON FOR EXAM: chest pain shortness of breath FINDINGS: The chest is unchanged compared to 05/12/2023. Moderate tortuosity and ectasia of the thoracic aorta. Normal heart size. Calcified granulomatous disease in both hemithoraces. No active pulmonary parenchymal or pleural disease. Significant degenerative spondylosis in the mid and lower thoracic spine. IMPRESSION: No acute chest abnormality.
--- NOTE | 2023-07-18 11:21 | ECG_ITS ---
[facility] Test Date: 2023-07-18 Pat Name: Symone Mendoza Department: Room: Gender: Female Clinical Safety Specialist: : 1960 Requested By: Hubert Rodriguez Order Number: [id number] Immanuel MD: William Richard M.D. Measurements Intervals [place] Rate: 89 P: 51 [place]: 174 QRS: 1 QRSD: 74 T: 30 QT: 351 QTc: 428 Interpretive Statements SINUS RHYTHM WITH SINUS ARRHYTHMIA MODERATE VOLTAGE CRITERIA FOR LVH, CONSIDER NORMAL VARIANT [MEETS CRITERIA IN ONE OF: R(aVL), S(V1), R(V5), R(V5/V6)+S(V1)] MODERATE ST DEPRESSION [0.05+ mV ST DEPRESSION] Compared to ECG 05/12/2023 18:49:38 Ventricular premature complex(es) no longer present ST (T wave) deviation still present Electronically Signed On 07-19-2023 7:59:36 CDT by William Richard M.D. [id number]
--- NOTE | 2023-07-18 11:24 | ED_ITS ---
HPI - GI Bleed General: Chief complaint: GI Bleed Stated complaint: NVD Time Seen by Provider: 07/18/23 11:00 History of Present Illness: 62-year-old female presents to the emergency department complaining of multiple things. She is breathless and exhibiting flight of ideas. It is hard to get her to focus on why she is here. Ultimately, I am able to determine that she has been continually having chest discomfort, shortness of breath, nausea, and today while at physical therapy she was having a bowel movement and saw some bright red blood in her stool. This was painless and she is not having any lower abdominal pain or rectal pain. Denies tenesmus. Patient's family member is here and alludes to the fact that she seems very stressed out. She sleeps only about 5 hours per night and frequently wakes up. She does not eat as much as usual. She is constantly worrying about her body. Patient is complaining of being out of breath despite 99% on room air here. She is endorsing having chest pain frequently for many many months. Back in November she had a work-up including monitor technician, echocardiogram, nuclear stress test. She was found to have an area of small reversible ischemia in the left circumflex region. I read her cardiology note and they report both typical and atypical features. Their plan was to do an angiogram but evidently the patient's insurance would not pay for it (per patient). Associated symptoms: Denies abdominal pain, chills, fever(s), headache(s), rash, syncope or vomiting Review of Systems General: Reports: 10 or more systems reviewed and unremarkable except in HPI and below Const: Denies: fever(s), chills or body aches Eyes: Denies: change in vision ENMT: Denies: throat pain Card: Denies: edema or syncope Resp: Denies: productive cough GI: Denies: abdominal pain, vomiting or diarrhea : Denies: flank pain, dysuria or urinary frequency Musc: Denies: neck pain, back pain, extremity pain or extremity swelling Skin/Breast: Denies: rash or erythema Neuro: Denies: headache(s), numbness in extremities, weakness in extremities, lack of coordination or difficulty walking [facility] ED PFSH: Medical History Allergic rhinitis HTN (hypertension) Hyperlipemia Family History Father Cancer Mother Cancer Brother Cancer Social History Smoking and tobacco status: never smoked Second hand smoke exposure: No Alcohol intake: never Desire information about alcohol rehabilitation?: No Substance/Drug Use: never Desire information about substance/drug rehabilitation?: No Physical Exam Narrative: EXAM NARRATIVE: Heart rate is in the 90s. Patient hyperventilating despite oxygen 99% and clear lungs. Blood pressure elevated. Flight of ideas Const: COMMON NORMALS: no limitations, alert and well nourished EXAM LIMITATIONS: no altered mental status HENMT: COMMON NORMALS: normocephalic, atraumatic and external ears normal HEAD & SCALP: normocephalic and atraumatic EXTERNAL EAR: Yes external ears normal MOUTH: no muffled voice Eye: COMMON NORMALS: EOMs intact bilaterally, conjunctivae normal and no scleral icterus CONJUNCTIVA: Yes conjunctivae normal Neck/C-Spine: COMMON NORMALS: no JVD GENERAL: Yes normal visual inspection and Yes trachea midline Resp: COMMON NORMALS: No use of accessory muscles and clear to auscultation bilaterally AUSCULTATION: clear to auscultation bilaterally Cardio: COMMON NORMALS: no JVD, regular rate and regular rhythm RATE: regular rate RHYTHM: regular rhythm GI: COMMON NORMALS: Soft to palpation and non-tender PALPATION: Yes Soft to palpation and No Guarding due to palpation present (GI) Extremity: COMMON NORMALS: normal to inspection Neuro: COMMON NORMALS: moves all extremities, no focal motor deficits and no sensory deficits noted SENSORIUM/ORIENTATION: Yes alert SPEECH: speech normal Psych: COMMON NORMALS: mental status grossly normal, cooperative and speech normal SPEECH: Yes normal speech MOOD & AFFECT: Yes anxious and Yes fearful THOUGHT PROCESS: disorganized and Flight of ideas present Skin: COMMON NORMALS: no rashes or lesions noted, turgor normal and no jaundice GENERAL SKIN EXAM: no rashes or lesions noted and turgor normal Course Vital Signs: Vital signs: Vital Signs Pulse Rate 92 07/18/23 14:16 Respiratory Rate 17 07/18/23 14:16 Blood Pressure 167/93 07/18/23 14:16 Pulse Oximetry 96 07/18/23 14:16 Oxygen Delivery Me thod Room Air 07/18/23 12:13 MDM - GI Bleed Medical Decision Making 62-year-old female presents to the emergency department complaining of multiple things. She is breathless and exhibiting flight of ideas. It is hard to get her to focus on why she is here. Ultimately, I am able to determine that she has been continually having chest discomfort, shortness of breath, nausea, and today while at physical therapy she was having a bowel movement and saw some bright red blood in her stool. This was painless and she is not having any lower abdominal pain or rectal pain. Denies tenesmus. Patient's family member is here and alludes to the fact that she seems very stressed out. She sleeps only about 5 hours per night and frequently wakes up. She does not eat as much as usual. She is constantly worrying about her body. Patient is complaining of being out of breath despite 99% on room air here. She is endorsing having chest pain frequently for many many months. Back in November she had a work-up including monitor technician, echocardiogram, nuclear stress test. She was found to have an area of small reversible ischemia in the left circumflex region. I read her cardiology note and they report both typical and atypical features. Their plan was to do an angiogram but evidently the patient's insurance would not pay for it (per patient). Differential diagnosis for her chest pain would include anxiety, angina, NSTEMI, GERD, less likely pulmonary embolism. She does not have any congestive heart failure as she had an echocardiogram this year. EKG shows a sinus rhythm at a rate of 89, normal axis, normal intervals, no concerning ST segment elevations or depressions. There is LVH suggested in 1 and aVL. Disagree with computer interpretation of ST depression Concerning the patient's bright red blood per rectum. This was 1 time in the setting of constipation having a bowel movement and is painless. She is not anticoagulated. Her abdomen is soft and nontender. I do not think any emergent imaging or endoscopy is required. CXR 1 View: my interp: Normal cardiomediastinal silhouette, no effusions, no visible pneumothorax, no focal infiltrates Mildly elevated white blood cell count. Nonspecific. No signs or symptoms of infection. Low suspicion for colitis or diverticulitis or proctitis. Alkaline phosphatase minimally elevated, otherwise normal LFTs. Hemoglobin 13.3, normal platelets. Baseline troponin normal, BNP normal. D-dimer mildly elevated CTA of the chest is pending. I reassessed the patient. She still has some hypertension although it is significantly improved with a diastolic down into the 80s and systolic in the 150s. Patient is noticeably calmer and she is able to frame her thoughts without her previously witnessed flight of ideas. Her heart rate has come down to 10 bpm. Patient may have organic disease but I think we have established that she also has stress and anxiety. Is unclear whether this is primary or secondary. I will have to assume to be secondary until organic disease is ruled out. Patient is ambulatory to the CT scanner for a CTA of her chest. CTA of the chest was negative for PE or other acute pathology. Patient required blood pressure medication here in the ER. She used to be on something that made my feet swell but they took me off of it . I suspect this was amlodipine. I will replace with losartan. We will start her at 25 mg p.o. twice daily. She is going to keep a blood pressure journal. I referred her back to talk to Dr. Her. Her GI bleeding is minor today and she can follow- up with that as an outpatient. I am Marjorie place her on medication for constipation as this is the biggest risk factor for bright red blood per rectum Lab Data 07/18/23 11:32 07/18/23 11:32 Laboratory Results WBC 11.49 10^3/uL (3.29-11.43) H 07/18/23 11:32 RBC 4.67 10^6/uL (3.85-5.65) 07/18/23 11:32 Hgb 13.30 g/dL (11.27-16.99) 07/18/23 11:32 Hct 41.3 % (36-47) 07/18/23 11:32 MCV 88.4 fl (85-98) 07/18/23 11:32 MCH 28.5 pg (27-33) 07/18/23 11:32 MCHC 32.2 g/dL (30-55) 07/18/23 11:32 RDW 14.5 % (12.1-15.1) 07/18/23 11:32 Plt Count 271 10^3/cmm (157-399) 07/18/23 11:32 MPV 10.3 fL (7.4-10.4) 07/18/23 11:32 Neut % (Auto) 68.3 % 07/18/23 11:32 Lymph % (Auto) 18.2 % 07/18/23 11:32 [place] % (Auto) 7.8 % 07/18/23 11:32 Eos % (Auto) 3.9 % 07/18/23 11:32 Baso % (Auto) 1.0 % 07/18/23 11:32 Neut # (Auto) 7.84 10^3/uL (1.8-7.7) H 07/18/23 11:32 Lymph # (Auto) 2.1 10^3/uL (0.8-4.8) 07/18/23 11:32 [place] # (Auto) 0.9 10^3/uL (0.2-0.9) 07/18/23 11:32 Eos # (Auto) 0.5 10^3/uL (0.0-0.8) 07/18/23 11:32 Baso # (Auto) 0.1 10^3/uL (0.0-0.1) 07/18/23 11:32 Nucleated RBC % (auto) 0 % 07/18/23 11:32 Nucleated RBCs # 0.0 /100WBC 07/18/23 11:32 PT 12.70 SECONDS (12.1-14.9) 07/18/23 11:32 INR 0.93 (0.8-1.2) 07/18/23 11:32 APTT 26.0 SECONDS (23.9-36.7) 07/18/23 11:32 D-Dimer 0.76 ug/mLFEU (0-0.59) H 07/18/23 11:32 Sodium 140 mmol/L (136-145) 07/18/23 11:32 Potassium 3.6 mmol/L (3.5-5.1) 07/18/23 11:32 Chloride 104 mmol/L (98-107) 07/18/23 11:32 Carbon Dioxide 27 mmol/L (22-29) 07/18/23 11:32 Anion Gap 12.6 (5-19) 07/18/23 11:32 BUN 12 mg/dL (8-23) 07/18/23 11:32 Creatinine 0.6 mg/dL (0.5-0.9) 07/18/23 11:32 GFR Calculation 101.6 mL/min (90-130) 07/18/23 11:32 Glucose 96 mg/dL (65-115) 07/18/23 11:32 Calculated Osmolality 290 mOsm/kg (285-295) 07/18/23 11:32 Calcium 8.5 mg/dL (8.5-10.5) 07/18/23 11:32 Total Bilirubin 0.3 mg/dL (0.15-1.2) 07/18/23 11:32 AST 18 U/L (0-32) 07/18/23 11:32 ALT 25 U/L (0-33) 07/18/23 11:32 Alkaline Phosphatase 119 U/L (35-105) H 07/18/23 11:32 Troponin T Baseline < 6 ng/L (0-10) 07/18/23 11:32 Troponin T 120 Minute 7.83 ng/L (0-10) 07/18/23 14:01 Delta Troponin T 1.79735 ABS# (0-10) 07/18/23 14:01 NT-Pro-B Natriuret Pep 68 pg/mL (0-125) 07/18/23 11:32 Total Protein 6.9 g/dL (6.6-8.7) 07/18/23 11:32 Albumin 4.4 g/dL (3.5-5.2) 07/18/23 11:32 Globulin 2.5 g/dL (1.3-4.6) 07/18/23 11:32 XR interpretation done by ED provider, pending radiology final review ED provider radiology interpretation(s): I have reviewed the patient's chest x-ray. See above Discharge Plan Discharge Patient Disposition: Home Clinical Impression: Bright red blood per rectum, Chronic chest pain, Accelerated hypertension, Anxiety disorder due to medical condition, Esophageal hernia Condition: Stable Prescriptions: New losartan 25 mg tablet 25 mg PO BID Qty: 60 0RF hydroxyzine HCl 25 mg tablet 25 mg PO Q8H PRN (Reason: anxiety) Qty: 60 0RF Senna with Docusate Sodium 8.6-50 mg tablet 1 tab-cap PO BID PRN (Reason: constipation) Qty: 60 0RF psyllium husk 0.52 gram capsule 0.52 g PO BID Qty: 60 0RF No Action Lasix 20 mg tablet 40 mg PO DAILY rosuvastatin 20 mg tablet 20 mg PO DAILY pantoprazole [Protonix] 20 mg tablet,delayed release (DR/EC) 20 mg PO BID meloxicam 7.5 mg tablet 7.5 mg PO DAILY Aspir-81 81 mg Tablet,Delayed Release (Dr/Ec) 81 mg PO DAILY PRN (Reason: Chest Pain) Discharge Orders: Discharge ED (Routine); Ordered 07/18/23 Ordered By: Hubert Rodriguez Referrals: Trenton Her M.D [Physician] - 7-10 days (Chest pain, ? circumflex CAD) Jami Reza PA [Primary Care Provider] - 7-10 days (Follow-up high blood pressure, bright red blood per rectum) Discharge Diet: Advance as tolerated Discharge Activity: Resume usual activity Patient Instructions: Chest Pain (ED), Rectal Bleeding (ED), Hypertension (ED), Opioid Safety, Pain Management Activity Restrictions/Additional Instructions: Today you have been diagnosed with: elevated blood pressure, stress/anxiety, recurrent chest pain with possible coronary disease in circumflex artery, constipation, and painless bright red bleeding per rectum. Additional information has been provided as handouts, please take the time to read and understand this information. It is very important that you follow up with a Doctor as discussed during your visit today, the information to contact your doctor is included in your discharge instructions. Failure to adhere to your follow up instructions may lead to severe disability, injury, or so please make sure to keep your appointments. Please return to the Emergency Department immediately and without fail if you experience any new, worsening, or concerning problems such as: worsening or changing chest pain, shortness of breath, headache or body pain, fever, lightheadedness, weakness, numbness, or any other concerning symptoms. If taking a substance like an opiate or other strong pain medication, please do not drive or operate heavy machinery while under the effects of this medicine. Thank you for allowing us to participate in your care today. Coding Level of Care Code ED Behavior Analyst for Sandra Kingsley
[2023-07-18] MEDS: ALPRAZolam 0.5 mg Tablet PO (11:31)
[2023-07-18 11:37] LABS: Basophils # 0.1 10^3/uL (0.0-0.1); Eosinophils # 0.5 10^3/uL (0.0-0.8); Eosinophils % 3.9 %; Hematocrit 41.3 % (36-47); Lymphocytes # 2.1 10^3/uL (0.8-4.8); Lymphocytes % 18.2 %; Mean Corpuscular HGB Conc 32.2 g/dL (30-55); Mean Corpuscular Hemoglobin 28.5 pg (27-33); Mean Corpuscular Volume 88.4 fl (85-98); Mean Platelet Volume 10.3 fL (7.4-10.4); Monocytes # 0.9 10^3/uL (0.2-0.9); Monocytes % 7.8 %; Neutrophils # 7.84 10^3/uL (1.8-7.7); Neutrophils % 68.3 %; Nucleated Red Blood Cells % 0 %; Platelet Count 271 10^3/cmm (157-399); Red Blood Count 4.67 10^6/uL (3.85-5.65); Red Cell Distribution Width 14.5 % (12.1-15.1); White Blood Count 11.49 10^3/uL (3.29-11.43)
[2023-07-18 11:49] LABS: INR 0.93 (0.8-1.2)
[2023-07-18 11:52] LABS: D Dimer 0.76 ug/mLFEU (0-0.59)
[2023-07-18 11:55] LABS: Troponin(5th) Baseline < 6 ng/L (0-10)
--- NOTE | 2023-07-18 12:06 | CT_ITS ---
WS: [id number] CTA OF THE CHEST WITH PULMONARY EMBOLISM PROTOCOL TECHNIQUE: High-resolution contrast enhanced CTA of the chest with coronal and sagittal reformatted i vishal with pulmonary embolism protocol. MIP images are also reviewed. CLINICAL INFORMATION: dimer pos, dyspnea cp COMPARISON: None. DLP: 505.[address] scans at [facility] use at least one of these dose optimization techniques: automated e xposure control; mA and/or kV adjustment per patient size (includes targeted exams where dose is matc hed to clinical indication); or iterative reconstruction. FINDINGS: Proximal pulmonary arteries are normal. Normal segmental and subsegmental pulmonary arteries. No evid ence of pulmonary embolus. Aortic calcification. No mediastinal or hilar lymphadenopathy. Adrenal gla nds are normal. Hepatomegaly. Tiny esophageal hiatal hernia. Celiac and SMA are patent in the upper a bdomen. Lungs are well aerated. No acute pulmonary infiltrates. No focal pneumonia or pleural fluid. IMPRESSION: 1. No evidence of pulmonary embolus 2. Lungs are well aerated. 3. Tiny esophageal hernia. 4. Hepatomegaly.
[2023-07-18 12:14] LABS: Alanine Aminotransferase 25 U/L (0-33); Albumin Level 4.4 g/dL (3.5-5.2); Alkaline Phosphatase 119 U/L (35-105); Anion Gap 12.6 (5-19); Aspartate Amino Transferase 18 U/L (0-32); Blood Urea Nitrogen 12 mg/dL (8-23); Calcium 8.5 mg/dL (8.5-10.5); Carbon Dioxide 27 mmol/L (22-29); Chloride 104 mmol/L (98-107); Globulin 2.5 g/dL (1.3-4.6); Glomerular Filtration Rate 101.6 mL/min (90-130); Glucose 96 mg/dL (65-115); NT Pro B Type Natriuretic Pept 68 pg/mL (0-125); Osmolality Calculated 290 mOsm/kg (285-295); Potassium 3.6 mmol/L (3.5-5.1); Sodium 140 mmol/L (136-145); Total Bilirubin 0.3 mg/dL (0.15-1.2); Total Protein 6.9 g/dL (6.6-8.7)
[2023-07-18] MEDS: diphenhydrAMINE 50 mg/mL SDV 1mL 25 MG IVP (12:15)
[2023-07-18] MEDS: prochlorperazine 10 mg/2 mL Inj 5 MG IVP (12:17)
[2023-07-18] MEDS: iohexol 350 mg/mL 500 mL Btl (per mL) IV (13:13)
[2023-07-18] MEDS: cloNIDine 0.1 mg Tablet 0.2 MG PO (13:18)
--- NOTE | 2023-07-18 13:22 | ECG_ITS ---
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 Measurements Intervals [place] Rate: 90 P: 52 VA: 154 QRS: -7 QRSD: 89 T: 24 QT: 367 QTc: 449 Interpretive Statements SINUS RHYTHM WITH OCCASIONAL VENTRICULAR PREMATURE COMPLEXES VOLTAGE CRITERIA FOR LVH [MEETS CRITERIA IN ONE OF: R(aVL), S(V1), R(V5), R(V5/V6)+S(V1)] Compared to ECG 07/18/2023 11:00:18 Ventricular premature complex(es) now present Sinus arrhythmia no longer present ST (T wave) deviation no longer present Electronically Signed On 07-19-2023 8:05:16 CDT by William Richard M.D. [id number]
[2023-07-18 14:38] LABS: Troponin 5 2HR 7.83 ng/L (0-10)
== END 2023-07-18 14:17 | disposition home or self-care (01) ==
PROVIDERS: Emergency Provider Emergency Medicine; PCP Physician Assistant
DX: G89.29 Other chronic pain (principal); R07.9 Chest pain, unspecified; K62.5 Hemorrhage of anus and rectum; I10 Essential (primary) hypertension; F06.4 Anxiety disorder due to known physiological condition; K44.9 Diaphragmatic hernia without obstruction or gangrene; Z79.82 Long term (current) use of aspirin; E78.5 Hyperlipidemia, unspecified
CPT/HCPCS: 36415; 71045; 71275; 80053; 83880; 84484; 85025; 85378; 85610; 85730; 93005; 96374; 96375; 99285; J0780; J1200; Q9967

== ENCOUNTER 2023-07-29 06:00 | Outpatient (RCR) | payer MEDICAID, SELFPAY | END 2023-08-28 23:59 | disposition home or self-care (01) | LOC: SPT 06:00 | PROVIDERS: PCP Physician Assistant; Visit Provider Physician Assistant | DX: M25.512 Pain in left shoulder (principal); G89.29 Other chronic pain | CPT/HCPCS: 97110; G0283 ==

== ENCOUNTER → 2023-08-09 16:58 | Outpatient (BNVA) | payer MEDICAID, SELFPAY | PROVIDERS: PCP Physician Assistant; Visit Provider Internal Medicine | DX: E78.5 Hyperlipidemia, unspecified (principal); I10 Essential (primary) hypertension | CPT/HCPCS: 36415; 80048; 83880 ==

== ENCOUNTER → 2023-10-18 12:59 | Outpatient (BNVA) | payer MEDICAID, SELFPAY | PROVIDERS: PCP Physician Assistant; Referring Provider Nurse Practitioner Family; Visit Provider Specialist | DX: M60.9 Myositis, unspecified (principal); R25.1 Tremor, unspecified | CPT/HCPCS: 36415; 82085; 82607; 83003; 84443; 85651; 86160; 86162; 86200; 86235; 86255; 86376; 86431 ==

== ENCOUNTER 2023-10-23 12:47 | Outpatient (CLI) | payer MEDICAID, SELFPAY ==
--- NOTE | 2023-10-23 13:23 | MR_ITS ---
WS: [id number] MRI CERVICAL SPINE NONCONTRAST TECHNIQUE: Sagittal T1, T2 and STIR imaging. Axial T2, gradient, and fiesta imaging. CLINICAL INFORMATION: NECK PAIN COMPARISON: None. FINDINGS: Straightening of the normal cervical lordosis. Cord signal is normal. C2-C3: Mild facet arthropathy. Spinal canal and foramen are patent. C3-C4: No significant disc bulging. Mild facet arthropathy. Mild bilateral foraminal narrowing. C4-C5: Mild disc osteophytic ridging. Mild facet arthropathy. Mild bilateral bony foraminal narrowing . C5-C6: Mild disc osteophyte complex with endplate ridging. Mild LEFT and no significant RIGHT foramin al narrowing. Mild facet arthropathy. Spinal canal is patent. C6-C7: Mild disc osteophyte complex with endplate ridging. Mild LEFT and no significant RIGHT foramin al narrowing. Spinal canal is patent. C7-T1: Mild disc osteophytic ridging. Mild LEFT greater than RIGHT bony foraminal narrowing. Spinal c anal is patent. Visualized brain stem structures: Normal. Prevertebral soft tissues: Normal. IMPRESSION: 1. Straightening of the normal cervical lordosis. Cord signal is normal. 2. Mild bony foraminal narrowing worse at LEFT C5-C6, LEFT C6-7, and LEFT greater than RIGHT C7-T1. 3. No significant central canal stenosis.
== END 2023-10-23 12:48 | disposition home or self-care (01) ==
LOC: RAD 12:47
PROVIDERS: PCP Physician Assistant; Visit Provider Nurse Practitioner Family
DX: M54.2 Cervicalgia (principal)
CPT/HCPCS: 72141

== ENCOUNTER 2024-03-19 08:34 | Outpatient (CLI) | payer MEDICAID, SELFPAY ==
--- NOTE | 2024-03-19 08:40 | MM_ITS ---
WS: [id number] Bilateral screening 3D tomosynthesis digital mammogram, 03/19/2024 Clinical Data: SCREENING Comparison: 06/22/2015, 10/20/2013, 05/15/2012. Findings: The breast parenchymal pattern shows fat replacement. No spiculated masses or clustered calcification s are seen. There are no secondary signs of carcinoma. MM/[place] [id number] Impression: 1. Negative bilateral mammogram unchanged. 2. Recommend annual screening mammograms. BIRADS: 1-Negative FOLLOW UP: 1 Year Follow-up The CAD rechecker was used.
== END 2024-03-19 08:35 | disposition home or self-care (01) ==
LOC: RAD 08:35
PROVIDERS: PCP Physician Assistant; Visit Provider Physician Assistant
DX: Z12.31 Encounter for screening mammogram for malignant neoplasm of breast (principal)
CPT/HCPCS: 77063; 77067

== ENCOUNTER 2024-10-13 20:00 | Outpatient (CLI) | payer MEDICAID, SELFPAY | END 2024-10-13 20:01 | disposition home or self-care (01) | LOC: SLEEP 23:30 | PROVIDERS: PCP Physician Assistant; Visit Provider Physician Assistant | DX: G47.33 Obstructive sleep apnea (adult) (pediatric) (principal); G47.36 Sleep related hypoventilation in conditions classified elsewhere | CPT/HCPCS: 95810 ==

== ENCOUNTER → 2024-10-26 14:35 | Outpatient (BNVA) | payer MEDICAID, SELFPAY | PROVIDERS: PCP Physician Assistant | DX: R05.9 Cough, unspecified (principal) | CPT/HCPCS: 87426 ==

== ENCOUNTER → 2024-11-28 09:52 | Outpatient (BNVA) | payer MEDICAID, SELFPAY | PROVIDERS: PCP Physician Assistant; Visit Provider Nurse Practitioner Family | DX: R07.9 Chest pain, unspecified (principal); I34.0 Nonrheumatic mitral (valve) insufficiency; I35.1 Nonrheumatic aortic (valve) insufficiency; I07.1 Rheumatic tricuspid insufficiency | CPT/HCPCS: 93005 ==

== ENCOUNTER 2024-11-28 10:21 | Observation (INO) | payer MEDICAID, SELFPAY ==
[2024-11-28] VITALS (11 sets, daily range): BP systolic 111–181; BP diastolic 54–84; PULSE 71–100; RESP 16–21; TEMP 36.5–37; O2SAT 91–98; BMI 41.3
--- NOTE | 2024-11-28 10:23 | ECG_ITS ---
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 Measurements Intervals [place] Rate: 85 P: 26 AK: 160 QRS: -7 QRSD: 110 T: 31 QT: 365 QTc: 436 Interpretive Statements SINUS RHYTHM VOLTAGE CRITERIA FOR LVH [MEETS CRITERIA IN ONE OF: R(aVL), S(V1), R(V5), R(V5/V6)+S(V1)] MINIMAL ST DEPRESSION [0.025+ mV ST DEPRESSION] Compared to ECG 11/28/2024 09:57:05 ST (T wave) deviation now present Electronically Signed On 11-29-2024 13:20:26 COASTAL TUG MATE by Trenton Her M.D. [id number]
--- NOTE | 2024-11-28 10:23 | XR_ITS ---
WS: [id number] Exam: XR chest 1V portable [id number] Date/Time of Exam: 11/28/2024 10:55 AM Reason For Exam: cp Comparison 07/18/2023. The lungs are clear and fully expanded. Normal cardiomediastinal silhouette and regional bony element s. Scattered calcified granulomas. XR/XR chest 1V portable [id number] IMPRESSION: 1. Negative chest.
[2024-11-28 10:33] LABS: Glucose Point of Care 158 mg/dL (70-110)
--- NOTE | 2024-11-28 10:34 | ED_ITS ---
HPI - Chest Pain 2 General: Chief Complaint: Chest Pain Stated Complaint: chest pain Time Seen by Provider: 11/28/24 10:22 Source: patient Mode of arrival: ambulatory Limitations: no limitations History of Present Illness: 64-year-old female who was going to her appointment up at [facility] and started having chest pain and they a rapid response was called states that pain came on suddenly is in the center of her chest she had some dizziness with the pain she had a history of heart disease she did have an abnormal stress test back in she never had a cath. She denies any dyspnea nausea she rates her pain a 5 out of 10 currently. Associated symptoms: Deny abdominal pain, dyspnea, fever(s), nausea or vomiting Related Data Home Medications Medication Instructions Recorded Confirmed pantoprazole 20 mg tablet,delayed 20 mg PO BID 01/30/23 11/28/24 release (Protonix) aspirin 81 mg tablet,delayed 81 mg PO DAILY PRN Chest Pain 07/18/23 11/28/24 release amitriptyline 25 mg tablet 25 mg PO QPM 11/28/24 11/28/24 clonidine HCl 0.1 mg tablet 0.1 mg PO DAILY 11/28/24 11/28/24 losartan 25 mg tablet 25 mg PO DAILY 11/28/24 11/28/24 rosuvastatin 10 mg tablet 10 mg PO DAILY 11/28/24 11/28/24 Previous Rx's Medication Instructions Recorded furosemide 40 mg tablet (Lasix) 40 mg PO BID #180 tabs 02/14/24 isosorbide mononitrate 60 mg 60 mg PO DAILY #90 tabs 02/14/24 tablet,extended release 24 hr Allergies Allergy/AdvReac Type Severity Reaction Status Date / Time Penicillins Allergy ALGY-Rash Verified 11/28/24 10:30 strawberry Allergy ALGY-Anaphy Verified 11/28/24 10:30 laxis Review of Systems 2 Const: Denies: fever(s), chills, body aches or change in appetite ENMT: Denies: throat pain or dental pain Card: Reports: chest pain Resp: Denies: dyspnea GI: Denies: abdominal pain, nausea, vomiting or diarrhea Musc: Denies: neck pain or back pain Skin/Breast: Denies: rash Neuro: Denies: headache(s) PFSH ED 2 PFSH: Medical History HTN (hypertension) Hyperlipemia Allergic rhinitis Family History Father Cancer Mother Cancer Brother Cancer Social History Smoking and tobacco/nicotine status: never used tobacco/nicotine Second hand smoke exposure: No Alcohol intake: never Substance/Drug Use: never Physical Exam 2 Const: COMMON NORMALS: patient oriented x3 HENMT: COMMON NORMALS: normocephalic and atraumatic HEAD & SCALP: n ormocephalic and atraumatic Eye: COMMON NORMALS: Equal, round and reactive pupils present and EOMs intact bilaterally PUPIL: Yes Equal, round and reactive pupils present Neck/C-Spine: COMMON NORMALS: full ROM and supple Chest: COMMONS NORMALS: normal inspection of the chest and normal palpation of entire chest wall Resp: COMMON NORMALS: normal respiratory effort, No retractions, No use of accessory muscles and clear to auscultation bilaterally AUSCULTATION: clear to auscultation bilaterally Cardio: COMMON NORMALS: regular rate, regular rhythm and No murmurs present (Cardio) RATE: regular rate RHYTHM: regular rhythm GI: COMMON NORMALS: Normal to inspection, nondistended, normoactive bowel sounds present, Soft to palpation, non-tender and no masses PALPATION: Yes Soft to palpation Extremity: COMMON NORMALS: normal to inspection and full ROM Neuro: COMMON NORMALS: patient oriented x3, moves all extremities and no focal motor deficits Psych: COMMON NORMALS: mental status grossly normal, Normal thought process present and cooperative THOUGHT PROCESS: Normal thought process present Skin: COMMON NORMALS: no rashes or lesions noted and no wounds GENERAL SKIN EXAM: no rashes or lesions noted Course 2 Vital Signs: Vital signs: Vital Signs Temperature 97.9 F 11/28/24 10:23 Pulse Rate 85 11/28/24 10:23 Respiratory Rate 16 11/28/24 10:23 Blood Pressure 181/73 11/28/24 10:23 Pulse Oximetry 96 11/28/24 10:23 Oxygen Delivery Me thod Room Air 11/28/24 10:23 MDM - Chest Pain Medical Decision Making Patient presents here with chest pain initial troponin here is negative EKG does show some slight ST depression compared to previous she had a abnormal cath in I spoke to hospitalist along with programmer business will admit at this time. Medical Records I reviewed the patient's medical records. Lab Data I reviewed the patient's lab results. 11/28/24 10:30 11/28/24 10:30 Laboratory Results WBC 8.95 10^3/uL (3.29-11.43) 11/28/24 10:30 RBC 4.89 10^6/uL (3.85-5.65) 11/28/24 10:30 Hgb 14.30 g/dL (11.27-16.99) 11/28/24 10:30 Hct 43.2 % (36-47) 11/28/24 10:30 MCV 88.3 fl (85-98) 11/28/24 10:30 MCH 29.2 pg (27-33) 11/28/24 10:30 MCHC 33.1 g/dL (30-55) 11/28/24 10:30 RDW 13.3 % (12.1-15.1) 11/28/24 10:30 Plt Count 242 10^3/cmm (157-399) 11/28/24 10:30 MPV 11.1 fL (7.4-10.4) H 11/28/24 10:30 Neut % (Auto) 62.0 % 11/28/24 10:30 Lymph % (Auto) 25.3 % 11/28/24 10:30 [place] % (Auto) 7.2 % 11/28/24 10:30 Eos % (Auto) 3.8 % 11/28/24 10:30 Baso % (Auto) 1.3 % 11/28/24 10:30 Neut # (Auto) 5.55 10^3/uL (1.8-7.7) 11/28/24 10:30 Lymph # (Auto) 2.3 10^3/uL (0.8-4.8) 11/28/24 10:30 [place] # (Auto) 0.6 10^3/uL (0.2-0.9) 11/28/24 10:30 Eos # (Auto) 0.3 10^3/uL (0.0-0.8) 11/28/24 10:30 Baso # (Auto) 0.1 10^3/uL (0.0-0.1) 11/28/24 10:30 Nucleated RBC % (auto) 0 % 11/28/24 10:30 Nucleated RBCs # 0.0 /100WBC 11/28/24 10:30 PT 12.40 SECONDS (12.1-14.9) 11/28/24 10:30 INR 0.87 (0.8-1.2) 11/28/24 10:30 Sodium 137 mmol/L (136-145) 11/28/24 10:30 Potassium 3.8 mmol/L (3.5-5.1) 11/28/24 10:30 Chloride 99 mmol/L (98-107) 11/28/24 10:30 Carbon Dioxide 24 mmol/L (22-29) 11/28/24 10:30 Anion Gap 17.8 (5-19) 11/28/24 10:30 BUN 11 mg/dL (8-23) 11/28/24 10:30 Creatinine 0.6 mg/dL (0.5-0.9) 11/28/24 10:30 GFR Calculation 101.0 mL/min (90-130) 11/28/24 10:30 Glucose 146 mg/dL (65-115) H 11/28/24 10:30 POC Glucose 158 mg/dL (70-110) H 11/28/24 10:29 Calculated Osmolality 286 mOsm/kg (285-295) 11/28/24 10:30 Calcium 9.2 mg/dL (8.5-10.5) 11/28/24 10:30 Total Bilirubin 0.5 mg/dL (0.15-1.2) 11/28/24 10:30 AST 27 U/L (0-32) 11/28/24 10:30 ALT 37 U/L (0-33) H 11/28/24 10:30 Alkaline Phosphatase 92 U/L (35-105) 11/28/24 10:30 Troponin T Baseline < 6 ng/L (0-10) 11/28/24 10:30 Total Protein 7.2 g/dL (6.6-8.7) 11/28/24 10:30 Albumin 4.5 g/dL (3.5-5.2) 11/28/24 10:30 Globulin 2.7 g/dL (1.3-4.6) 11/28/24 10:30 Lipase 20 U/L (13-60) 11/28/24 10:30 All radiology interpretation(s) finalized by discharge EKG Data EKG 1: I personally reviewed and interpreted this EKG as follows: EKG interpretation date: 11/28/24 EKG interpretation time: 10:23 Interpretation: nsr hr [address] elevation qrs 110 qtc 408 Discharge Plan Discharge Patient Disposition: Admitted As Inpatient Clinical Impression: Chest pain Condition: Stable Prescriptions: No Action pantoprazole [Protonix] 20 mg tablet,delayed release (DR/EC) 20 mg PO BID furosemide [Lasix] 40 mg tablet 40 mg PO BID Qty: 180 2RF isosorbide mononitrate 60 mg tablet extended release 24 hr 60 mg PO DAILY Qty: 90 3RF aspirin [Aspir-81] 81 mg Tablet,Delayed Release (Dr/Ec) 81 mg PO DAILY PRN (Reason: Chest Pain) clonidine HCl 0.1 mg tablet 0.1 mg PO DAILY amitriptyline 25 mg tablet 25 mg PO QPM losartan 25 mg tablet 25 mg PO DAILY rosuvastatin 10 mg tablet 10 mg PO DAILY Referrals: Jami Reza PA [Primary Care Provider] - Coding Level of Care Code ED Visual And Stock Associate for Sandra Kingsley
[2024-11-28 10:36] LABS: Basophils # 0.1 10^3/uL (0.0-0.1); Basophils % 1.3 %; Eosinophils # 0.3 10^3/uL (0.0-0.8); Eosinophils % 3.8 %; Hematocrit 43.2 % (36-47); Lymphocytes # 2.3 10^3/uL (0.8-4.8); Lymphocytes % 25.3 %; Mean Corpuscular HGB Conc 33.1 g/dL (30-55); Mean Corpuscular Hemoglobin 29.2 pg (27-33); Mean Corpuscular Volume 88.3 fl (85-98); Mean Platelet Volume 11.1 fL (7.4-10.4); Monocytes # 0.6 10^3/uL (0.2-0.9); Monocytes % 7.2 %; Neutrophils # 5.55 10^3/uL (1.8-7.7); Nucleated Red Blood Cells % 0 %; Platelet Count 242 10^3/cmm (157-399); Red Blood Count 4.89 10^6/uL (3.85-5.65); Red Cell Distribution Width 13.3 % (12.1-15.1); White Blood Count 8.95 10^3/uL (3.29-11.43)
[2024-11-28 10:50] LABS: INR 0.87 (0.8-1.2)
[2024-11-28 10:55] LABS: Troponin(5th) Baseline < 6 ng/L (0-10)
[2024-11-28 10:56] LABS: Alanine Aminotransferase 37 U/L (0-33); Albumin Level 4.5 g/dL (3.5-5.2); Alkaline Phosphatase 92 U/L (35-105); Anion Gap 17.8 (5-19); Aspartate Amino Transferase 27 U/L (0-32); Blood Urea Nitrogen 11 mg/dL (8-23); Calcium 9.2 mg/dL (8.5-10.5); Carbon Dioxide 24 mmol/L (22-29); Chloride 99 mmol/L (98-107); Creatinine Clr Calc Pharmacy 111.6813; Globulin 2.7 g/dL (1.3-4.6); Glucose 146 mg/dL (65-115); Lipase 20 U/L (13-60); Osmolality Calculated 286 mOsm/kg (285-295); Potassium 3.8 mmol/L (3.5-5.1); Sodium 137 mmol/L (136-145); Total Bilirubin 0.5 mg/dL (0.15-1.2); Total Protein 7.2 g/dL (6.6-8.7)
[2024-11-28] MEDS: aspirin 81 mg Chew Tablet 324 MG PO (11:02)
--- NOTE | 2024-11-28 11:18 | P.HP_ITS ---
Documented by User: Stella Weber BORIS STDNT 11/28/24 14:11 Providers/Chief Complaint 2 Primary Care Provider: Jami Reza Chief Complaint: chest pain History of Present Illness Symone Mendoza is a 64 year old female with PMH of CAD and abnormal NM perfusion scan in 2022 presenting to the ED with chest pressure that began during her cardiology appointment this morning. She was brought to the ED as a rapid response. She notes that her left shoulder and upper chest were feeling funny this morning prior to her appointment but then became worse after walking from the parking lot to her cardiology appointment at some point she began feeling lightheaded and out of it and reported worsening chest pain 6/10 and this is when they called a rapid response. She notes that she was having shortness of breath at that time as well which is now resolved. Currently she reports her chest pain as 4/10. Reports blurry vision for 2 days as well, denies headache. Denies fevers chills. Notes chronic abdominal pain and bloating that seems worse today. She denies diarrhea or constipation. She states she is very tender along her lateral abdomen bilaterally Date of Service: 05/23/23 Procedure(s): ROR carotid duplex BI IMPRESSION: Less than 50% ICA stenosis bilaterally. Date of Service: 12/11/22 Procedure(s): CV ankle brachial index [id number] CONCLUSIONS ?Normal resting PACO bilaterally suggesting no significant ?arterial obstruction Date of Service: 11/30/22 Procedure(s): NM deanna perf SPECT r/s* [id number] IMPRESSIONS ?1. Abnormal myocardial perfusion imaging with small sized perfusion defect ?noted in the left circumflex artery territory. ?2. LV systolic function is normal Date of Service: 11/30/22 Procedure(s): Sestamibi Stress Test Request Conclusion: 1. ? Normal EKG response to Lexiscan infusion 2.? No Lexiscan induced chest pain or cardiac arrhythmia. 3.? Normal blood pressure and heart rate response. Date of Service: 11/30/22 Procedure(s): CV. echo complete* [id number] CONCLUSIONS ?1. Normal left ventricular size, systolic function and wall ?thickness, with no regional wall motion abnormalities. Left ?ventricular ejection fraction is estimated at 65 %. Normal ?diastolic function. ?2. No significant valvular abnormality. ?3. No prior similar studies to compare. Review of Systems 2 Const: Reports: malaise; Denies: fever(s) or chills Eyes: Reports: change in vision and blurry vision Card: Reports: chest pain, lightheadedness and syncope; Denies: irregular heart rhythm or swelling of feet/ankles Resp: Denies: dyspnea, productive cough or wheezing GI: Reports: abdominal pain; Denies: nausea, vomiting or diarrhea : Denies: difficulty voiding Neuro: Denies: headache(s) Medications/Allergies Home Medications Medication Instructions Recorded Confirmed Last Taken Type pantoprazole 20 mg tablet,delayed 20 mg PO BID 01/30/23 11/28/24 11/27/24 History release (Protonix) aspirin 81 mg tablet,delayed 81 mg PO DAILY PRN Chest Pain 07/18/23 11/28/24 11/27/24 History release furosemide 40 mg tablet (Lasix) 40 mg PO BID #180 tabs 02/14/24 11/28/24 11/27/24 Rx isosorbide mononitrate 60 mg 60 mg PO DAILY #90 tabs 02/14/24 11/28/24 11/27/24 Rx tablet,extended release 24 hr amitriptyline 25 mg tablet 25 mg PO QPM 11/28/24 11/28/24 11/27/24 History clonidine HCl 0.1 mg tablet 0.1 mg PO DAILY 11/28/24 11/28/24 11/27/24 History losartan 25 mg tablet 25 mg PO DAILY 11/28/24 11/28/24 11/27/24 History rosuvastatin 10 mg tablet 10 mg PO DAILY 11/28/24 11/28/24 11/27/24 History Allergies Allergy/AdvReac Type Severity Reaction Status Date / Time Penicillins Allergy ALGY-Rash Verified 11/28/24 10:30 strawberry Allergy ALGY-Anaphy Verified 11/28/24 10:30 laxis PFSH Acute 2 PFSH: Medical History HTN (hypertension) Hyperlipemia Allergic rhinitis Family History Father Cancer Mother Cancer Brother Cancer Social History Smoking and tobacco/nicotine status: never used tobacco/nicotine Second hand smoke exposure: No Alcohol intake: never Substance/Drug Use: never Vitals/I&O/Wt Last Vital Signs Temp 97.9 F 11/28/24 10:23 Pulse 85 11/28/24 10:23 Resp 16 11/28/24 10:23 BP 181/73 11/28/24 10:23 Pulse Ox 96 11/28/24 10:23 O2 Del Method Room Air 11/28/24 10:23 Weight last 48 hrs Weight 105.687 kg Physical Exam 2 Const: COMMON NORMALS: no acute distress, patient oriented x3 and alert G ENERAL APPEARANCE: cooperative and anxious NUTRITIONAL APPEARANCE: obese HENMT: COMMON NORMALS: normocephalic and atraumatic Eye: COMMON NORMALS: EOMs intact bilaterally, conjunctivae normal and no scleral icterus Resp: EFFORT & INSPECTION: No respiratory distress AUSCULTATION: clear to auscultation bilaterally, no crackles and no wheezes Cardio: COMMON NORMALS: regular rate, regular rhythm and No murmurs present (Cardio) GI: COMMON NORMALS: Normal to inspection, nondistended, normoactive bowel sounds present and Soft to palpation PALPATION: Yes Tenderness to palpation present (GI) Details: LUQ and RUQ Extremity: NARRATIVE EXTREMITY EXAM: No lower extremity edema Neuro: COMMON NORMALS: CN's II-XII intact bilaterally and no sensory deficits noted SPEECH: speech normal MOTOR EXAM: 5/5 motor strength present throughout Data 11/28/24 10:30 11/28/24 10:30 A&P Assessment and plan (1) Unstable angina: Plan Symone Mendoza is a 64 year old female with PMH of CAD and abnormal NM perfusion scan in 2022 presenting to the ED with chest pressure that began during her cardiology appointment this morning. Her initial troponin is negative, repeat 2-hour troponin is pending. She does not have any signs of infection including no leukocytosis, afebrile, and currently hypertensive. She was reportedly hypotensive and confusion during the rapid response with BP down to 80s/40s, most likely vasovagal syncope secondary to acute pain. She is having acute on chronic abdominal pain, on labs no sign of acute process as LFTs and lipase are normal. She did report some shortness of breath and cough during her episode so we obtained a D-dimer which was normal. # Unstable angina # History of abnormal NM perfusion scan with defect to the left circumflex (11/2022) Reportedly was recommended that she undergo an angio in 2022, however her insurance company would not cover it unless it was done emergently. Initial troponin negative, EKG overall unremarkable ?Cardiology consult placed, plan for cath tomorrow ?Serial EKGs and troponins ? Started nitro drip, subcu Lovenox for anticoagulation # Syncope # Blurry vision ? Head CT without acute abnormalities ?Will check orthostatics #Dyspnea?resolved #Cough?resolved ?Currently on room air ? D-dimer negative #Acute on chronic abdominal pain #RUQ and LUQ tenderness No leukocytosis and lipase normal on admission. No recent trauma. Reports that she had a normal EGD and colonoscopy 1 year ago. -could consider right upper quadrant ultrasound as well, will continue to monitor DVT Prophylaxis: Lovenox Full code N.p.o. midnight for cath Coding Level of Care Code 66550 Diagnoses Unstable angina I20.0 Documented by User: Boby Blas MD 11/28/24 16:07 Providers/Chief Complaint 2 Chief Complaint: chest pain Medications/Allergies Home Medications Medication Instructions Recorded Confirmed Last Taken Type pantoprazole 20 mg tablet,delayed 20 mg PO BID 01/30/23 11/28/24 11/27/24 History release (Protonix) aspirin 81 mg tablet,delayed 81 mg PO DAILY PRN Chest Pain 07/18/23 11/28/24 11/27/24 History release furosemide 40 mg tablet (Lasix) 40 mg PO BID #180 tabs 02/14/24 11/28/24 11/27/24 Rx isosorbide mononitrate 60 mg 60 mg PO DAILY #90 tabs 02/14/24 11/28/24 11/27/24 Rx tablet,extended release 24 hr amitriptyline 25 mg tablet 25 mg PO QPM 11/28/24 11/28/24 11/27/24 History clonidine HCl 0.1 mg tablet 0.1 mg PO DAILY 11/28/24 11/28/24 11/27/24 History losartan 25 mg tablet 25 mg PO DAILY 11/28/24 11/28/24 11/27/24 History rosuvastatin 10 mg tablet 10 mg PO DAILY 11/28/24 11/28/24 11/27/24 History Allergies Allergy/AdvReac Type Severity Reaction Status Date / Time Penicillins Allergy ALGY-Rash Verified 11/28/24 10:30 strawberry Allergy ALGY-Anaphy Verified 11/28/24 10:30 laxis PFSH Acute 2 PFSH: Medical History HTN (hypertension) Hyperlipemia Allergic rhinitis Family History Father Cancer Mother Cancer Brother Cancer Social History Smoking and tobacco/nicotine status: never used tobacco/nicotine Second hand smoke exposure: No Alcohol intake: never Substance/Drug Use: never Data 11/28/24 10:30 11/28/24 10:30 A&P Assessment and plan (1) Unstable angina: Attestations 2 Medical Necessity Statement*: Place in observation for additional assessment management of unstable angina in a lady with prior abnormal stress test, suspect underlying coronary disease with risk factors, syncopal episode. Other Attestations: Patient seen and examined independently. Findings confirmed and assessment and plan discussed with medical i d sales Dr Weber. Mrs Mendoza was hospitalized after rapid response and cardiology clinic, with episode of chest pressure, some dyspnea, dry cough, then also accompanied by lightheadedness, syncopal episode. She received some nitroglycerin with reported response and chest pressure. Was reportedly having transient hypotension, blood pressure down to 91/53. Otherwise hypertensive in ER, 161/84, 148/78. She has previously had a stress test in November 2022 with finding of abnormal myocardial perfusion with small sized perfusion defect in LCx territory. She reports that her symptoms started after a long walk from the parking lot over to the clinic and then persistent and got worse. In ER she is afebrile, without leukocytosis. Without tachycardia, chest x-ray unremarkable. Initial and 2-hour troponin negative. EKG with LVH, minimal ST depression in anteroseptal leads on my interpretation, pending official read. Reviewed vitals, CBC, CMP, chest x-ray, ER provider note, discussed with ER provider. As per discussion with her and her , continue additional workup, complete troponin EKG series. Monitor on telemetry for any arrhythmia. Reassess blood pressure. Requested orthostatics. Requested echocardiogram. Cardiology consultation has been requested as well. She has undergone coronary angiogram assessment with finding of patent coronaries. Reassess renal function with risk of contrast nephropathy. Receiving IV hydration, to risk of fluid overload. Consideration of possibly microvascular disease with coronary risk factors, with noted hyperglycemia close 158, obtain A1c. Obtain lipid profile. Continue aspirin. Continue statin. Monitor blood pressures. Consider calcium channel neelam in case of possible vasospasm. D-dimer requested, reviewed, not elevated. Low probability PE. Complete workup after syncopal episode. With abdominal tenderness on exam, additional valuation is requested with plain CT abdomen pelvis. Transaminitis with minimal ALT elevation, check CK. Reviewed lipase, normal. T. bili, alk phos normal. Diagnoses Unstable angina I20.0
--- NOTE | 2024-11-28 12:01 | P.CONIM_ITS ---
<Statement entered by Trenton Her M.D - 11/28/24 22:03> Patient was evaluated and cared for in conjunction with an advanced practice practitioner. I personally examined the patient and reviewed the chart and all pertinent data including imaging, telemetry, and laboratory results. I discussed the patient in detail with the advanced practice practitioner. Please see their note for complete consult note, results and agreed upon plan of care for the patient. Following updates to LU[facility] note GENERAL: Patient is alert and oriented HEART: Regular S1 and S2 LUNGS: Clear to auscultation bilaterally EXTREMITIES: Lower extremities with no edema 1) Worsening angina 2) Abnormal stress test Patient is complaining of typical, worsening chest pain. Symptoms are worrisome for unstable angina. Dynamic ST T wave changes seen in the leads V 1-V 2. Initial plan was to perform angiogram tomorrow but she had episodes of significant worsening chest pain and we will proceed with coronary angiogram today. CT head performed and ruled out head bleed as she was complaining of tingling in the hands and occasional blurred vision over last 1 week. Thank you for involving us with care of this patient. We will continue to follow. Please call with questions. Providers/Reason For Consult 2 Consulting Physician/Specialty*: Dr Her, cardiology Reason for Consult*: chest pain, EKG changes Requesting Physician: Dr Gentile Attending Physician: Boby Blas Primary Care Provider: Jami Reza History of Present Illness History of Present Illness Symone Mendoza is a 64 year old female with past medical history of hypertension, hyperlipidemia and chest pain. She had a stress test last year which showed a small reversible defect in the left circumflex territory. Coronary angiography was declined by insurance. EKG on arrival to the ER shows T wave inversions in V1 and V2, sinus rhythm. Most recent echocardiogram 2022 showed LVEF 65%, normal diastolic function and no significant valvular abnormalities. CBC unremarkable, baseline troponin less than 6. At the time of my examination she reports mental confusion, has had blurry vision for the last 2 days as well as uncontrollable shaking. Will order stat CT of the head. She has left-sided chest heaviness/pressure, rated 6 out of 10 radiating into the neck, has a feeling of tingling in the left scapula on her back. She typically has some lower extremity edema, none today. She feels bloated in her abdomen and feels the need to belch. She feels some unusual shortness of breath. Review of Systems 2 Const: Denies: fever(s), chills, change in weight, fatigue or diaphoresis Eyes: Reports: change in vision and blurry vision ENMT: Denies: epistaxis Card: Reports: chest pain, pre-syncope and dyspnea on exertion; Denies: palpitations, irregular heart rhythm, edema, syncope, orthopnea or leg pain with exertion Resp: Denies: dyspnea, productive cough or wheezing GI: Denies: nausea, vomiting, hematemesis, hematochezia or melena : Denies: hematuria Musc: Denies: extremity swelling Kyle/Lymph: Denies: easy bruising or easy bleeding Medications/Allergies Home Medications Medication Instructions Recorded Confirmed Last Taken Type pantoprazole 20 mg tablet,delayed 20 mg PO BID 01/30/23 11/28/24 11/27/24 History release (Protonix) aspirin 81 mg tablet,delayed 81 mg PO DAILY PRN Chest Pain 07/18/23 11/28/24 11/27/24 History release furosemide 40 mg tablet (Lasix) 40 mg PO BID #180 tabs 02/14/24 11/28/24 11/27/24 Rx isosorbide mononitrate 60 mg 60 mg PO DAILY #90 tabs 02/14/24 11/28/24 11/27/24 Rx tablet,extended release 24 hr amitriptyline 25 mg tablet 25 mg PO QPM 11/28/24 11/28/24 11/27/24 History clonidine HCl 0.1 mg tablet 0.1 mg PO DAILY 11/28/24 11/28/24 11/27/24 History losartan 25 mg tablet 25 mg PO DAILY 11/28/24 11/28/24 11/27/24 History rosuvastatin 10 mg tablet 10 mg PO DAILY 11/28/24 11/28/24 11/27/24 History Allergies Allergy/AdvReac Type Severity Reaction Status Date / Time Penicillins Allergy ALGY-Rash Verified 11/28/24 10:30 strawberry Allergy ALGY-Anaphy Verified 11/28/24 10:30 laxis PFSH Acute 2 PFSH: Medical History HTN (hypertension) Hyperlipemia Allergic rhinitis Family History Father Cancer Mother Cancer Brother Cancer Social History Smoking and tobacco/nicotine status: never used tobacco/nicotine Second hand smoke exposure: No Alcohol intake: never Substance/Drug Use: never Vitals/I&O/Wt Last Vital Signs Temp 97.9 F 11/28/24 10:23 Pulse 82 11/28/24 11:20 Resp 16 11/28/24 10:23 BP 161/84 11/28/24 11:20 Pulse Ox 96 11/28/24 11:20 O2 Del Method Room Air 11/28/24 10:23 Weight last 48 hrs Weight 233 lb Physical Exam 2 Const: COMMON NORMALS: patient oriented x3 GENERAL APPEARANCE: cooperative and anxious ORIENTATION/CONSCIOUSNESS: Yes awake, Yes oriented to person, Yes oriented to place and Yes oriented to time Chest: COMMONS NORMALS: normal inspection of the chest and normal palpation of entire chest wall CHEST: Yes Symmetrical chest wall rise Resp: COMMON NORMALS: normal respiratory effort, No retractions, No use of accessory muscles and clear to auscultation bilaterally EFFORT & INSPECTION: Yes symmetric chest movement AUSCULTATION: clear to auscultation bilaterally Cardio: COMMON NORMALS: regular rate, regular rhythm, S1 normal heart sound present, S2 normal heart sound present, No gallops present (Cardio), No clicks present (Cardio), No murmurs present (Cardio) and No rub (Cardio) RATE: r egular rate RHYTHM: regular rhythm HEART SOUNDS: S1 normal heart sound present and S2 normal heart sound present PERIPHERAL PULSES: radial pulses present Extremity: COMMON NORMALS: no pedal edema Neuro: COMMON NORMALS: patient oriented x3 and moves all extremities S ENSORIUM/ORIENTATION: Yes oriented to person, Yes oriented to place and Yes oriented to time Data 11/28/24 10:30 11/28/24 10:30 A&P Assessment and plan (1) Chest pain: (2) Abnormal stress test: (3) HTN (hypertension): (4) Hyperlipemia: Plan Will continue to trend troponins. Given the EKG changes and typical chest pain symptoms we will plan for coronary angiogram tomorrow. Will go ahead and start nitroglycerin infusion for relief of chest pain. Also obtain stat CT of the head to rule out hemorrhagic stroke. Consult Attestations 2 Medical Necessity Statement: Chest pain, ischemic evaluation tomorrow Coding Level of Care Code Acute Code for Chg Fwd Diagnoses Chest pain R07.9 Abnormal stress test R94.39 HTN (hypertension) I10 Hyperlipemia E78.5
--- NOTE | 2024-11-28 12:35 | ECG_ITS ---
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 Measurements Intervals Mcloud Rate: 81 P: 40 GA: 177 QRS: -5 QRSD: 79 T: 26 QT: 377 QTc: 440 Interpretive Statements SINUS RHYTHM MODERATE VOLTAGE CRITERIA FOR LVH, CONSIDER NORMAL VARIANT [MEETS CRITERIA IN ONE OF: R(aVL), S(V1), R(V5), R(V5/V6)+S(V1)] MODERATE ST DEPRESSION [0.05+ mV ST DEPRESSION] Compared to ECG 11/28/2024 10:23:34 No significant changes Electronically Signed On 11-29-2024 13:33:35 DINKEY LOCOMOTIVE ENGINEER by Trenton Her M.D. [email or web address]
--- NOTE | 2024-11-28 12:39 | CT_ITS ---
WS: [id number] CT HEAD TECHNIQUE: Noncontrast CT of the head obtained from the skullbase to the vertex. CLINICAL INFORMATION: confusion COMPARISON: 2021 DLP: 1070.[address] scans at [facility] use at least one of these dose optimization techniques: automated e xposure control; mA and/or kV adjustment per patient size (includes targeted exams where dose is matc hed to clinical indication); or iterative reconstruction. FINDINGS: No evidence of intracranial hemorrhage or mass effect. Ventricular system and basal cisterns are henry nt. Minimal small vessel changes with mild parenchymal volume loss. No extra-axial fluid collections. No evidence of mass or mass effect. Paranasal sinuses and mastoid air cells are well aerated. .Normal visualized soft tissues. CT/CT head wo con* [id number] IMPRESSION: 1. No evidence of intracranial hemorrhage or mass effect. 2. No acute intracranial findings.
--- NOTE | 2024-11-28 12:45 | PC.NURSE ---
pt received from ER bedside report given by Aysha Galvan, RN Pt settled in bed, looked anxious,overwhelmed, chest pressure rated at 4/10. tele monitor shows HR-90s with freq PVC's. BP-152/90. Dr Her and Ms Ernestina Winters at bedside around 1300pm. Discussion on Left Heart cath today, pt consented and sign the form for procedure. Pt has not had any food or fluid intake. Pt prep for cardiac cath. pt notified sister via phone in regards to her procedure. 1302pm-Cath team in room to take her to labor mediator.
[2024-11-28 12:49] LABS: Troponin 5 2HR Delta 0.00001 ABS# (0-10)
--- NOTE | 2024-11-28 12:49 | XACV_ITS ---
Exam Room: 2 Ht: 160 cm Wt: 106 kg BSA: 2.22 m2 Gender: Female : 1960 Any Known Allergies: Other Exam Priority: Routine Procedure(s): Procedure Description: Diagnostic procedure Procedure Description: Left Heart Catheterization Procedure Description: Left ventriculography Procedure Description: Coronary Angiography Diagnostic Cath Status: Urgent Diagnostic Findings * No significant disease noted in the Left Main, Left Anterior Descending, Right, or Circumflex coronary arteries. * Coronary angiography shows left dominance. Conclusions 1. No significant disease noted in the Left Main, Left Anterior Descending, Right, or Circumflex coronary arteries. 2. Normal left ventricular systolic function. Ejection fraction of 60%. Recommendations * Possible vasospasm. Can add amlodipine. * Outpatient cardiology follow up. Interventional RX Recommendation: medical therapy and/or counseling Diagnostic RX Recommendation: medical therapy and/or counseling Anticoagulation: Heparin Ventriculography Ejection Fraction: 60.0 % Pressures Phase:Rest AO : 110 / 75 ( 92 ) @ 1:54:00 PM 150 / 72 ( 100 ) @ 1:59:00 PM 145 / 70 ( 97 ) @ 1:59:00 PM LV : 168 / -14 / 11 @ 1:58:00 PM 160 / -8 / 14 @ 1:59:00 PM 158 / -8 / 15 @ 1:59:00 PM Valves Phase:DefaultPhase AV : 8.0 @ 2:06:44 PM AV Mean Gradient: 29.0 @ 2:06:44 PM Clinical Evaluation EBL: 5mL-10mL Procedural Details Procedure Consent Obtained. Pre-Procedure Time Out. Identified patient by full name and date of as verbalized by the patient/guarantor. Does the consent match the physician's order: Yes. Accurate & Complete Informed Consent: Yes. Inpatient/Outpatient History & Physical on Chart: Yes. If H&P is completed, is and addenduem needed: No; If yes, is the addendum complete: N/A. Visualize and Verify Site with Patient/Guarantor: N/A. Relevant Radiology Images available: Yes. Pre-op teaching completed and patient verbalized understanding. The risks, benefits, and alternatives of sedation and/or procedure were discussed by physician. The patient agrees to continue. Procedure started. Current Diagnosis : Chest Pain. Physician arrived. [facility] Clinical Fraility Score: 3: Managing Well. 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 Chest Pain Symptom Assessment: Typical Angina Symptoms. Correct patient, site and procedure confirmed by cath team. Current diagnosis: Chest Pain. PERRLA. Strong, equal hand display fabricator bilaterally. Lungs clear x 5 lobes. IV Site on Arrival: 20 gauge in the right anticubital. IV Fluids: 0.9% NaCl at KVO. 0 mL infused prior to pathology lab technician. Oxygen started at 2liters/min via nasal canula. right groin was prepped with chloroprep then draped in the usual sterile fashion. right radial was prepped with chloroprep then draped in the usual sterile fashion. Baseline sample Acquired. HR: 92 BPM. Physician scrubbed in. Immediate Pre-Procedure Time Out. Correct Patient: Yes; Correct Procedure: Yes; Correct Site: Yes; Correct Patient Position: Yes; Correct Supplies: Yes; Dried Flammable Prep: Yes; Blood Products Available: N/A;. Lidocaine 1% infiltrated to the right radial. Ultrasound being used to obtain access. Arterial access obtained. A 5 ivorian TIG catheter in over wire. Multiple views taken of left coronary artery. Catheter redirected to the RCA. Multiple views taken of right coronary artery. Catheter removed over the exchange wire. A 5 ivorian Angled Pig catheter in over wire. EDP Sample taken: LV 168/-15,11; HR: 97 BPM; SpO2: 96%. LV gram performed in ROBLERO @ 10 mL/second for a total of 30 mL. EDP Sample taken: LV 160/-9,14; HR: 94 BPM; SpO2: 96%. Pullback taken: LV 158/-9,15; AO 150/72(100); Mean: 29mmHg, Peak to Peak: 8mmHg, SEP: 9sec/min; HR: 93 BPM; SpO2: 96%. Catheter removed over the exchange wire. A TR Band was successful obtaining hemostatsis at the Right Radial artery insertion site. Post Procedure: Pulses reassessed and unchanged. PERRLA. Strong, equal hand display fabricator bilaterally. No VTE prophylaxis required. Medication's Wasted: Lidocaine 1% = 18 mL. Medication's Wasted: Nitro = 49.6 mcg. Medication's Wasted: Heparin = 1000 units. Total IV fluids: 25 mL. Vital chart was stopped. Post-op diagnosis: Non-obstructive CAD. Complications: None. Estimated blood loss: 5mL-10mL. Responsiveness - Normal response to verbal stimuli; alert and oriented, PERRLA. Airway - Unaffected, no intervention required; spontaneous ventilation. Circulation: W/N/L, pulses unchanged. Nausea/Vomiting: No. Procedure completed. Patient transferred by bed to 1st floor. Access Site Site: Right Radial artery Sheath Size: 6 Fr Hemostasis Method: TR Band Hemostasis Success: Successful Procedure Medications Start: 1:38 PM Stop: 1:38 PM Medication: Benadryl Amount: 25 mg Route: I.V. Start: 1:42 PM Stop: 1:42 PM Medication: Versed Amount: 1 mg Route: I.V. Start: 1:42 PM Stop: 1:42 PM Medication: Fentanyl Amount: 50 mcg Route: I.V. Start: 1:45 PM Stop: 1:45 PM Medication: Versed 1 mg and Fentanyl 25 mcg Amount: 1 Route: I.V. Start: 1:50 PM Stop: 1:50 PM Medication: Nitrogylcerin Amount: 200 mcg Route: I.A. Start: 1:52 PM Stop: 1:52 PM Medication: Heparin Amount: 5000 units Route: I.V. Start: 1:55 PM Stop: 1:55 PM Medication: Nitrogylcerin Amount: 200 mcg Route: I.A. I, the attending physician, have reviewed and verified all procedure medications. Yes, all medications given per verbal order History/Risk Factors Hypertension: Yes Dyslipidemia: Yes Peripheral Arterial Disease (PAD): No Myocardial Infarction (NC): No Obesity: Yes Renal Disease: No Tobacco Use: Never Prior Interventions PCI: No CABG: No Valve Surgery: No Report Signatures Finalized by Trenton Her MD on 12/06/2024 08:57 AM
--- NOTE | 2024-11-28 13:27 | W.PM.OPSUD ---
Surgery/Procedure H&P Update DATE OF PROCEDURE: November 28, 2024 DATE H&P PERFORMED: 11/28/24 H&P UPDATE INFORMATION: I have reviewed H&P completed within last 30 days, I have examined patient prior to procedure and No changes to prior documentation PREOP DIAGNOSIS: Unstable angina PRIMARY INDICATION FOR PROCEDURE: Unstable angina PLANNED PROCEDURE: Left heart cath with possible percutaneous coronary intervention PATIENT REASSESSED PRIOR TO SEDATION, WITH NO CHANGE NOTED: Yes PHYSICAL EXAM: alert, oriented x 3, clear to auscultation bilaterally and regular rate & rhythm AIRWAY EVAL/ANESTHESIA PLAN: normal airway, ASA III, Local Anesthesia, Risks, benefits & alternatives of sedation and/or procedure discussed and Patient agrees to continue as planned ADDITIONAL INFORMATION: Moderate sedation
[2024-11-28 13:45] LABS: D Dimer 0.41 ug/mLFEU (0-0.59)
--- NOTE | 2024-11-28 14:13 | P.PCN_ITS ---
Procedure Note: Date of procedure: 11/28/24 Pre-procedure diagnosis: Unstable angina Post-procedure diagnosis: other (Patent coronary arteries) Procedure: Coronary arteries are patent. Chest pain can be secondary to microvascular dysfunction/ coronary vasospasm vs anxiety Performing Provider: Trenton Her Estimated blood loss (mL): 10 Complications: None Condition: stable Disposition: floor Coding Level of Care Code Acute Code for [facility]
--- NOTE | 2024-11-28 15:02 | PC.NURSE ---
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 pt is sleepy from sedation,radial pulse is palpable+3. no bleeding,hematoma or swelling around tr band. call light within reach.
[2024-11-28] MEDS: sodium chloride 0.9% 1,000 ML 100 ML IV (15:30)
--- NOTE | 2024-11-28 15:42 | USCV_ITS ---
Symone Mendoza Age: 64 Gender: F : 1960 Exam Date: 11/28/2024 18:24 Ordering Phys: Boby Blas MD Technologist: Luis Daniel Addison Exam Location: [facility] [place] Indication: UA BP: 113 / 54 HR: 78 Rhythm: Sinus Technical Quality: Adequate MEASUREMENTS (Male / Female) Normal Values 2D ECHO LV Diastolic Diameter PLAX 5.0 cm 4.2 - 5.9 / 3.9 - 5.3 cm IVS Diastolic Thickness 1.4 cm 0.6 - 1.0 / 0.6 - 0.9 cm IVS Systolic Thickness 1.7 cm LVPW Diastolic Thickness 1.6 cm 0.6 - 1.0 / 0.6 - 0.9 cm LVPW Systolic Thickness 1.7 cm LVOT Diameter 2.0 cm LV Ejection Fraction 2D Teich 69.9 % LV Ejection Fraction MOD 4C 75.3 % LV Ejection Fraction MOD 2C 58.8 % LV Ejection Fraction 2C AL 58.5 % LA Diameter 3.1 cm RA Systolic Volume 4C AL 20.9 ml RA Systolic Volume 4C MOD 21.5 ml LA Sys Volume AL 52.1 cm cubed LA Sys Volume Index AL 23.4 cm cubed/m squared Aorta at Sinotubular Diameter 2.3 cm M-MODE LA Ao Ratio MM 1.1 AV Cusp Separation MM 2.0 cm DOPPLER AV Peak Velocity 174.0 cm/s LVOT Peak Velocity 95.0 cm/s AV Area Cont Eq vti 2.1 cm squared AV Area Cont Eq pk 1.7 cm squared MV Peak Velocity 122.0 cm/s MV Area PHT 3.4 cm squared Mitral E to A Ratio 0.9 TV Peak Velocity 262.5 cm/s TR Peak Velocity 333.0 cm/s TR Peak Gradient 44.4 mmHg TR Mean Velocity 291.0 cm/s TR Mean Gradient 35.1 mmHg TR Velocity Time Integral 79.7 cm PV Peak Velocity 146.0 cm/s RV Ejection Time 0.3 s FINDINGS Left Ventricle Left ventricle is normal in size. LV systolic function is normal with EF of 55-60%. No regional wall motion abnormalities are seen. Right Ventricle Normal in size and function Right Atrium Normal in size Left Atrium Normal in size Mitral Valve Structurally normal mitral valve. Mild mitral regurgitation. Aortic Valve Structurally normal aortic valve. No significant stenosis. Mild aortic regurgitation. Tricuspid Valve Mild tricuspid regurgitation. Insufficient TR jet to calculate RVSP Pulmonic Valve Not well visualized Pericardium Normal Aorta Normal in size IVC Not well visualized CONCLUSIONS LV systolic function is normal with EF of 55-60% Mild mitral regurgitation Mild tricuspid regurgitation Trenton Her MD (Electronically Signed) Final Date: 29 November 2024 09:47 S
--- NOTE | 2024-11-28 16:01 | CTR_ITS ---
PROCEDURE INFORMATION: Exam: CT Abdomen And Pelvis Without Contrast Exam date and time: 11/28/2024 9:58 PM Age: 64 years old Clinical indication: Abdominal pain; Generalized; Prior surgery; Surgery date: 6+ months; Surgery type: Hysterectomy; C/O diffuse abd pain. ; Additional info: Abdo tenderness TECHNIQUE: Imaging protocol: Computed tomography of the abdomen and pelvis without contrast. Radiation optimization: All CT scans at this facility use at least one of these dose optimization techniques: automated exposure control; mA and/or kV adjustment per patient size (includes targeted exams where dose is matched to clinical indication); or iterative reconstruction. COMPARISON: CT angio chest PE protcl [id number] 07/18/2023 1:05 PM RADIATION DOSE METRICS: Total DLP (mGy-cm): 988.08 FINDINGS: Lungs: Calcified left lower lobe lung nodule likely an old granuloma. Liver: Hepatic steatosis. Gallbladder and biliary ducts: Gallbladder is present. Pancreas: Normal. No ductal dilation. Spleen: Normal. No splenomegaly. Adrenal glands: Normal. No mass. Kidneys and ureters: See Urinary bladder finding. Stomach and bowel: Unremarkable. No obstruction. No mucosal thickening. Appendix: The appendix is not seen. Intraperitoneal space: Unremarkable. No free air. No significant fluid collection. Vasculature: Calcified aortic atherosclerosis. Lymph nodes: No enlarged lymph nodes. Urinary bladder: There is contrast material in the bladder and both ureters. Reproductive: Unremarkable as visualized. Bones/joints: No fracture. Soft tissues: Unremarkable. Other findings: Limited noncontrast exam. CT/CT abdomen pelvis wo con [id number] IMPRESSION: 1. No acute abnormality. 2. Hepatic steatosis.
[2024-11-28 16:57] LABS: Troponin 5 6HR 10.36 ng/L (0-10); Troponin 5 6HR Delta 4.36001 ng/L (0-12)
[2024-11-28 17:15] LABS: Creatine Phosphokinase 70 U/L (26-192)
[2024-11-28] MEDS: lidocaine 2% viscous 15 ML, aluminum-mag hydrox-simethicon 30 ML, sucralfate oral liq 1 GM PO (18:46)
[2024-11-28] MEDS: amitriptyline 25 mg Tablet PO (18:46)
[2024-11-28] MEDS: atorvastatin 40 mg Tablet PO (21:40)
[2024-11-29] VITALS (7 sets, daily range): BP systolic 104–125; BP diastolic 53–75; PULSE 57–89; RESP 14–20; TEMP 36.6–36.8; O2SAT 95–98
[2024-11-29 03:58] LABS: Basophils # 0.1 10^3/uL (0.0-0.1); Eosinophils # 0.2 10^3/uL (0.0-0.8); Eosinophils % 3.4 %; Hematocrit 38.6 % (36-47); Lymphocytes % 29.5 %; Mean Corpuscular HGB Conc 32.4 g/dL (30-55); Mean Corpuscular Hemoglobin 29.8 pg (27-33); Mean Corpuscular Volume 92.1 fl (85-98); Mean Platelet Volume 11.4 fL (7.4-10.4); Monocytes # 0.6 10^3/uL (0.2-0.9); Monocytes % 9.1 %; Neutrophils # 3.85 10^3/uL (1.8-7.7); Neutrophils % 56.4 %; Nucleated Red Blood Cells % 0 %; Platelet Count 198 10^3/cmm (157-399); Red Blood Count 4.19 10^6/uL (3.85-5.65); Red Cell Distribution Width 13.5 % (12.1-15.1); White Blood Count 6.82 10^3/uL (3.29-11.43)
[2024-11-29 04:25] LABS: Estmated Average Glucose 114; Hemoglobin A1C 5.6 % (4.0-6.0)
[2024-11-29 04:29] LABS: Chol HDL Ratio 4.51 mg/dL (0.0-4.40); Cholesterol 167 mg/dL (0-200); HDL Cholesterol 37 mg/dL (60-100); LDL Cholesterol Calculated 94 mg/dL (50-129); LDL HDL Ratio 2.54 RATIO (0.00-3.22); Triglycerides 180 mg/dL (0-150)
[2024-11-29 04:32] LABS: Blood Urea Nitrogen 10 mg/dL (8-23); Calcium 8.1 mg/dL (8.5-10.5); Carbon Dioxide 26 mmol/L (22-29); Chloride 105 mmol/L (98-107); Creatinine Clr Calc Pharmacy 111.6813; Glucose 120 mg/dL (65-115); Magnesium 2.5 mg/dL (1.7-2.3); Osmolality Calculated 286 mOsm/kg (285-295); Sodium 138 mmol/L (136-145)
[2024-11-29] MEDS: pantoprazole DR 40 mg Tablet PO (08:04)
[2024-11-29] MEDS: isosorbide mononitrate ER 60 mg Tablet PO (08:04)
[2024-11-29] MEDS: cloNIDine 0.1 mg Tablet PO (08:04)
[2024-11-29] MEDS: FUROsemide 40 mg Tablet PO (08:04)
[2024-11-29] MEDS: losartan 50 mg Tablet 25 MG PO (08:04)
[2024-11-29] MEDS: aspirin 81 mg EC Tablet PO (08:04)
--- NOTE | 2024-11-29 08:26 | P.PN_ITS ---
Subjective 2 Subjective: Patient doing well. No chest pain. Had coronary angiogram yesterday which showed patent coronary arteries. Vitals/I&O/Wt Last Vital Signs Temp 98.1 F 11/29/24 07:24 Pulse 61 11/29/24 07:24 Resp 14 11/29/24 07:24 BP 119/72 11/29/24 08:04 Pulse Ox 95 11/29/24 07:24 O2 Del Method Room Air 11/29/24 07:24 11/28/24 11/29/24 11/29/24 22:59 06:59 14:59 Intake Total 1000 / 1000 Balance 1000 / 1000 Weight last 48 hrs Weight 235 lb 9.6 oz Weight 233 lb Weight 233 lb Physical Exam 2 Narrative: GENERAL: Patient is alert, awake and oriented x3. [] NECK: No jugular vein distension. [] HEENT: No cyanosis. No icterus. No pallor. [] HEART: Regular S1 and S2. No murmur, rub or gallop. [] LUNGS: Clear to auscultate bilaterally. [] CENTRAL NERVOUS SYSTEM: Grossly nonfocal. [] EXTREMITIES: Lower extremities with no edema bilaterally. Data 11/29/24 02:22 11/29/24 02:22 A&P Assessment and plan (1) Chest pain: (2) Abnormal stress test: (3) HTN (hypertension): (4) Hyperlipemia: Plan Patient's coronary angiogram did not demonstrate significant CAD. Patient is low-dose amlodipine added for possible vasospasm. Patient is stable to be discharged from cardiac standpoint. Attestations 2 Medical Necessity Statement*: Care not expected to cross 2 midnights. Coding Level of Care Code Acute Code for [facility] Fwd Diagnoses Chest pain R07.9 Abnormal stress test R94.39 HTN (hypertension) I10 Hyperlipemia E78.5
--- NOTE | 2024-11-29 10:14 | USR_ITS ---
PROCEDURE INFORMATION: Exam: US Abdomen, Limited; Right Upper Quadrant Exam date and time: 11/29/2024 2:56 PM Age: 64 years old Clinical indication: Abdominal pain; Localized; Right upper quadrant (ruq); Additional info: Ruq pain TECHNIQUE: Imaging protocol: Real time ultrasound of the abdomen with image documentation. Limited exam focused on the right upper quadrant. COMPARISON: CT abdomen pelvis wo con [id number] 11/28/2024 9:58 PM FINDINGS: Liver: Hepatic steatosis. 18 mm area of probable focal fatty sparing in the left hepatic lobe. 9 mm hepatic cyst. Gallbladder: Normal. No gallstones. There is no gallbladder wall thickening. Biliary ducts: Normal. No stones. No dilation. Pancreas: Visualized pancreas is unremarkable. Right kidney: Normal. No mass. No hydronephrosis. US/US gall bladder [id number] IMPRESSION: 1. Hepatic steatosis. 2. 18 mm area of probable focal fatty sparing in the left hepatic lobe. 3. 9 mm hepatic cyst.
--- NOTE | 2024-11-29 10:55 | PC.CHAP ---
Pastoral Care Encounter/Spiritual Assessment Type of Contact [] Declined dental manager visit [] Patient/Family/Request visit [] Outpatient visit [] Follow-up visit [] Physician referral [] Code/Alert [x] Routine visit [] Staff referral [] Actively dying [] Patient sleeping [] Family support [] [] Out of room [] Palliative care [] [] Receiving care in room [] Pre-surgical visit [] Trauma [] Long length of stay [] ICU visit [] Other: Relational/Emotional Strength [x] Patient feels connected with others/family/visitors/staff [] Distress [] Loneliness/isolation [] Abandonment Spirituality of Patient [x] Person of Susan [x] Attends Nondenominational of their Susan [X] Believes in Prayer [x] Reads Bible or Mormon materials [] There are Spiritual issues to be addressed Dehairer Interventions [x] Prayer [x] Active listening [x] Non-anxious presence [x] Spiritual/emotional support [] Crisis/trauma care [] Spiritual counseling [] Bereavement support [] Provided bereavement packet [] Provided Bible/devotional materials [] Provided toy/stuffed animal, coloring book to patient or family member [] Provided Communion [] Anointing/Dierks [] Salvation [] Completed spiritual assessment [] Other: Impact on Illness or Injury [] Angry [] Fearful [] Anxious [] Often cries [] Exhaustion [] Unable to work [] Unable to attend mosque [] Unable to walk/stand [] Unable to read [] Unable to drive [] Unable to eat/drink [] Unable to sleep [] Unable to be with family [] Patient intubated [] Other: Summary Prayer and Support Time spent with patient 1 hr. 40 Min.
--- NOTE | 2024-11-29 16:45 | PM.DCS ---
Discharge Providers Date of Admission: 11/28/24 11:56 Date of Discharge: November 29, 2024 Attending Provider at Admission: Boby Blas Attending Provider at Discharge: Donny Reed MD Primary Care Provider: Jami Reza Diagnoses at Discharge Discharge Diagnosis (1) Chest pain: Status: Resolved (2) Abnormal stress test: Status: Resolved (3) HTN (hypertension): Status: Acute (4) Hyperlipemia: Status: Acute Reason for Visit Reason for Visit: chest pain Hospital Course Hospital Course This is a 64-year-old female with a past medical history hypertension hyperlipidemia who presents [facility] due to chest pain, syncopal episode Chest pain, she was monitored as inpatient, cardiology was consulted, underwent coronary angiography, no obstructive CAD, echocardiogram EF 55 to 60% For her syncopal episode, she was monitored as inpatient, no recurrent episodes, likely vasovagal episode, discharged with event monitor in place Acute on chronic abdominal pain CT scan abdomen pelvis no acute findings, gallbladder ultrasound no acute findings Physical Exam Const: COMMON NORMALS: no acute distress and patient oriented x3 Resp: COMMON NORMALS: normal respiratory effort, No retractions, No use of accessory muscles and clear to auscultation bilaterally AUSCULTATION: clear to auscultation bilaterally Cardio: COMMON NORMALS: regular rate, regular rhythm, S1 normal heart sound present and S2 normal heart sound present RATE: regular rate RHYTHM: regular rhythm HEART SOUNDS: S1 normal heart sound present and S2 normal heart sound present GI: COMMON NORMALS: Normal to inspection, nondistended, normoactive bowel sounds present and non-tender Extremity: COMMON NORMALS: no pedal edema Neuro: COMMON NORMALS: patient oriented x3 Psych: COMMON NORMALS: mental status grossly normal Discharge Data Studies Completed and Pending Completed Studies During Hospitalization Category Date Time Status CT abdomen pelvis wo con [id number] Routine Cat Scan 11/28/24 16:[address] head wo con* [id number] Stat Cat Scan 11/28/24 12:39 Completed XR chest 1V portable [id number] Stat Exams 11/28/24 10:23 Completed CV. echo complete* [id number] Routine Ultrasound 11/28/24 15:42 Completed US gall bladder [id number] Routine Ultrasound 11/29/24 10:14 Completed Pending at discharge Category Date Time Status CLINICAL QUALITY MANAGER request for service Routine Exams 11/28/24 12:49 Ordered Radiology Impressions Chest X-Ray 11/28/24 10:23 IMPRESSION: 1. Negative chest. Head CT 11/28/24 12:39 IMPRESSION: 1. No evidence of intracranial hemorrhage or mass effect. 2. No acute intracranial findings. Abdomen/Pelvis CT 11/28/24 16:01 IMPRESSION: 1. No acute abnormality. 2. Hepatic steatosis. Gallbladder Ultrasound 11/29/24 10:14 IMPRESSION: 1. Hepatic steatosis. 2. 18 mm area of probable focal fatty sparing in the left hepatic lobe. 3. 9 mm hepatic cyst. Laboratory Results WBC 6.82 10^3/uL (3.29-11.43) 11/29/24 02:22 RBC 4.19 10^6/uL (3.85-5.65) 11/29/24 02:22 Hgb 12.50 g/dL (11.27-16.99) 11/29/24 02:22 Hct 38.6 % (36-47) 11/29/24 02:22 MCV 92.1 fl (85-98) 11/29/24 02:22 MCH 29.8 pg (27-33) 11/29/24 02:22 MCHC 32.4 g/dL (30-55) 11/29/24 02:22 RDW 13.5 % (12.1-15.1) 11/29/24 02:22 Plt Count 198 10^3/cmm (157-399) 11/29/24 02:22 MPV 11.4 fL (7.4-10.4) H 11/29/24 02:22 Neut % (Auto) 56.4 % 11/29/24 02:22 Lymph % (Auto) 29.5 % 11/29/24 02:22 Coleman % (Auto) 9.1 % 11/29/24 02:22 Eos % (Auto) 3.4 % 11/29/24 02:22 Baso % (Auto) 1.0 % 11/29/24 02:22 Neut # (Auto) 3.85 10^3/uL (1.8-7.7) 11/29/24 02:22 Lymph # (Auto) 2.0 10^3/uL (0.8-4.8) 11/29/24 02:22 Coleman # (Auto) 0.6 10^3/uL (0.2-0.9) 11/29/24 02:22 Eos # (Auto) 0.2 10^3/uL (0.0-0.8) 11/29/24 02:22 Baso # (Auto) 0.1 10^3/uL (0.0-0.1) 11/29/24 02:22 Nucleated RBC % (auto) 0 % 11/29/24 02:22 Nucleated RBCs # 0.0 /100WBC 11/29/24 02:22 PT 12.40 SECONDS (12.1-14.9) 11/28/24 10:30 INR 0.87 (0.8-1.2) 11/28/24 10:30 D-Dimer 0.41 ug/mLFEU (0-0.59) 11/28/24 10:30 Sodium 138 mmol/L (136-145) 11/29/24 02:22 Potassium 4.0 mmol/L (3.5-5.1) 11/29/24 02:22 Chloride 105 mmol/L (98-107) 11/29/24 02:22 Carbon Dioxide 26 mmol/L (22-29) 11/29/24 02:22 Anion Gap 11.0 (5-19) 11/29/24 02:22 BUN 10 mg/dL (8-23) 11/29/24 02:22 Creatinine 0.6 mg/dL (0.5-0.9) 11/29/24 02:22 GFR Calculation 101.0 mL/min (90-130) 11/29/24 02:22 Glucose 120 mg/dL (65-115) H 11/29/24 02:22 POC Glucose 158 mg/dL (70-110) H 11/28/24 10:29 Estimat Average Glucose 114 11/29/24 02:22 Hemoglobin A1c 5.6 % (4.0-6.0) 11/29/24 02:22 Calculated Osmolality 286 mOsm/kg (285-295) 11/29/24 02:22 Calcium 8.1 mg/dL (8.5-10.5) L 11/29/24 02:22 Magnesium 2.5 mg/dL (1.7-2.3) H 11/29/24 02:22 Total Bilirubin 0.5 mg/dL (0.15-1.2) 11/28/24 10:30 AST 27 U/L (0-32) 11/28/24 10:30 ALT 37 U/L (0-33) H 11/28/24 10:30 Alkaline Phosphatase 92 U/L (35-105) 11/28/24 10:30 Creatine Kinase 70 U/L (26-192) 11/28/24 10:30 Troponin T Baseline < 6 ng/L (0-10) 11/28/24 10:30 Troponin T 120 Minute 6.00 ng/L (0-10) 11/28/24 12:24 Delta Troponin T 0.50159 ABS# (0-10) 11/28/24 12:24 Troponin T Hi Sens 6Hr 10.36 ng/L (0-10) H 11/28/24 16:26 Troponin T Hi Sens 6Hr Delta 4.85455 ng/L (0-12) 11/28/24 16:26 Total Protein 7.2 g/dL (6.6-8.7) 11/28/24 10:30 Albumin 4.5 g/dL (3.5-5.2) 11/28/24 10:30 Globulin 2.7 g/dL (1.3-4.6) 11/28/24 10:30 Triglycerides 180 mg/dL (0-150) H 11/29/24 02:22 Cholesterol 167 mg/dL (0-200) 11/29/24 02:22 LDL Cholesterol, Calc 94 mg/dL (50-129) 11/29/24 02:22 HDL Cholesterol 37 mg/dL (60-100) L 11/29/24 02:22 LDL/HDL Ratio 2.54 RATIO (0.00-3.22) 11/29/24 02:22 Cholesterol/HDL Ratio 4.51 mg/dL (0.0-4.40) H 11/29/24 02:22 Lipase 20 U/L (13-60) 11/28/24 10:30 Vitals Last Vital Signs Temp 97.8 F 11/29/24 15:24 Pulse 80 11/29/24 15:24 Resp 19 H 11/29/24 15:24 BP 112/63 11/29/24 15:24 Pulse Ox 96 11/29/24 15:24 O2 Del Method Room Air 11/29/24 15:24 Discharge Plan Discharge Patient Disposition: Home Condition: Stable Prescriptions: Continued pantoprazole [Protonix] 20 mg tablet,delayed release (DR/EC) 20 mg PO BID furosemide [Lasix] 40 mg tablet 40 mg PO BID Qty: 180 2RF isosorbide mononitrate 60 mg tablet extended release 24 hr 60 mg PO DAILY Qty: 90 3RF aspirin 81 mg Tablet,Delayed Release (Dr/Ec) 81 mg PO DAILY PRN (Reason: Chest Pain) clonidine HCl 0.1 mg tablet 0.1 mg PO DAILY amitriptyline 25 mg tablet 25 mg PO QPM losartan 25 mg tablet 25 mg PO DAILY rosuvastatin 10 mg tablet 10 mg PO DAILY Discharge Orders: Discharge Order (Routine); Ordered 11/29/24 Ordered By: Donny Reed Referrals: Trenton Her M.D [Physician] - 1 month (We have notified your physician's clinic of the need for a follow-up appointment to be scheduled. If you have not heard from them within the next 2 business days, please call them directly. ) Jami Reza PA [Primary Care Provider] - (We have notified your physician's clinic of the need for a follow-up appointment to be scheduled. If you have not heard from them within the next 2 business days, please call them directly. ) Discharge Diet: Cardiac Discharge Activity: Resume usual activity Patient Instructions: Opioid Safety, Post Angiogram Home Care Instructions Activity Restrictions/Additional Instructions: - Please follow-up with cardiology -Please follow-up with primary care -If you have any recurrent syncopal episodes or chest pain go to the emergency room Discharge Attestations Time Spent in Discharge Care*: greater than 30 min Quality Metrics Clinical Quality Measures [ No reported AMI, CVA or VTE this stay] Coding Level of Care Code 28744 Total time (in minutes) for Discharge: 45 Diagnoses Chest pain R07.9 Abnormal stress test R94.39 HTN (hypertension) I10 Hyperlipemia E78.5
--- NOTE | 2024-11-29 18:22 | PC.NURSE ---
At ~1645 Patient discharged to home. Instruction provided regarding follow up needs. No medication changes. Patient and spouse verbalized complete understanding. Patient left via wheelchair to private vehicle. No distress observed.
== END 2024-11-29 16:45 | disposition home or self-care (01) ==
LOC: ER 11:46 → CSU 11:57
PROVIDERS: Internal Medicine; Admitting Provider Internal Medicine; Emergency Provider Emergency Medicine; PCP Physician Assistant; Visit Provider Family Medicine
DX: R07.9 Chest pain, unspecified (principal); Z79.82 Long term (current) use of aspirin; Z79.899 Other long term (current) drug therapy; Z88.0 Allergy status to penicillin; Z91.018 Allergy to other foods; I10 Essential (primary) hypertension; E78.5 Hyperlipidemia, unspecified; R55 Syncope and collapse; H53.8 Other visual disturbances; R06.00 Dyspnea, unspecified; R10.812 Left upper quadrant abdominal tenderness; R10.811 Right upper quadrant abdominal tenderness; I08.1 Rheumatic disorders of both mitral and tricuspid valves; R94.39 Abnormal result of other cardiovascular function study; K76.89 Other specified diseases of liver; K76.0 Fatty (change of) liver, not elsewhere classified
CPT/HCPCS: 36415; 36416; 70450; 71045; 74176; 76705; 80048; 80053; 80061; 82550; 82962; 83036; 83690; 83735; 84484; 85025; 85378; 85610; 93005; 93306; 93458; 96365; 96366; 96374; 96375; 96376; 99152; 99153; 99285; C1769; C1887; C1894; G0378; J1200; J1644; J2250; J3010; J3490; J7030; Q9967

== ENCOUNTER 2025-01-14 20:00 | Outpatient (CLI) | payer MEDICAID, SELFPAY | END 2025-01-14 20:01 | disposition home or self-care (01) | LOC: SLEEP 22:22 | PROVIDERS: PCP Physician Assistant; Visit Provider Physician Assistant | DX: G47.33 Obstructive sleep apnea (adult) (pediatric) (principal) | CPT/HCPCS: 95810 ==

== ENCOUNTER 2025-09-02 07:51 | Outpatient (CLI) | payer MEDICARE, MEDICAID, SELFPAY ==
--- NOTE | 2025-09-02 07:56 | CTR_ITS ---
PROCEDURE INFORMATION: Exam: CT Abdomen And Pelvis With Contrast Exam date and time: 09/02/2025 8:25 AM Age: 64 years old Clinical indication: Condition or disease; Other: Acute colitis; Prior surgery; Surgery date: 6+ months; Surgery type: Hyst; Generalized abdominal pain diarrhea 2 months ago for 1.5 months constant. TECHNIQUE: Imaging protocol: Computed tomography of the abdomen and pelvis with contrast. Radiation optimization: All CT scans at this facility use at least one of these dose optimization techniques: automated exposure control; mA and/or kV adjustment per patient size (includes targeted exams where dose is matched to clinical indication); or iterative reconstruction. Contrast material: OMNI 350; Contrast volume: 100 ml; Contrast route: INTRAVENOUS (IV); COMPARISON: CT abdomen pelvis wo con [id number] 11/28/2024 9:58 PM RADIATION DOSE METRICS: Total DLP (mGy-cm): 851.37 FINDINGS: Liver: Small hepatic cyst. Gallbladder and biliary ducts: Normal. No calcified stones. No ductal dilation. Pancreas: Normal. No ductal dilation. Spleen: Normal. No splenomegaly. Adrenal glands: Normal. No mass. Kidneys and ureters: Normal. No hydronephrosis. Stomach and bowel: Diverticulosis without evidence of diverticulitis. Appendix: No evidence of appendicitis. Intraperitoneal space: Unremarkable. No free air. No significant fluid collection. Vasculature: Unremarkable. No abdominal aortic aneurysm. Lymph nodes: Unremarkable. No enlarged lymph nodes. Urinary bladder: Unremarkable as visualized. Reproductive: Hysterectomy. Bones/joints: Unremarkable. No acute fracture. Soft tissues: Unremarkable. CT/CT abdomen pelvis w con* [id number] IMPRESSION: No acute findings.
[2025-09-02] MEDS: iohexol 350 mg/mL 500 mL Btl (per mL) IV (08:41)
== END 2025-09-02 07:52 | disposition home or self-care (01) ==
LOC: RAD 07:53
PROVIDERS: PCP Family Medicine; Visit Provider Physician Assistant
DX: K52.9 Noninfective gastroenteritis and colitis, unspecified (principal); K57.90 Diverticulosis of intestine, part unspecified, without perforation or abscess without bleeding; Z90.710 Acquired absence of both cervix and uterus
CPT/HCPCS: 74177

== ENCOUNTER 2025-10-19 16:51 | Outpatient (CLI) | payer MEDICARE, MEDICAID, SELFPAY ==
--- NOTE | 2025-10-19 16:59 | USCV_ITS ---
Symone Mendoza Age: 64 Gender: F : 1960 Exam Date: 10/19/2025 17:04 Ordering Phys: Jami Reza Technologist: MIKE Exam Location: [facility] [place] Indication: Bilateral leg pain HISTORY: Lower extremity pain-bilateral leg pain PROCEDURES: Venous duplex imaging was performed in bilateral lower extremities. The following venous structures were evaluated: common femoral vein, profunda vein, proximal portion of the greater saphenous vein, superficial femoral vein, and the popliteal vein. In addition, the posterior tibial and peroneal trunk were evaluated. FINDINGS: Normal 2-D Doppler and augmentation and compressibility throughout the lower extremity venous structures. Additional imaging through the proximal calf veins also reveals no thrombus. Limited evaluation of the greater saphenous vein is patent with no thrombus. CONCLUSIONS No DVT bilateral lower extremities. Dr. Eileen Lopez DO (Electronically Signed) Final Date: 20 October 2025 09:14 S
== END 2025-10-19 16:52 | disposition home or self-care (01) ==
LOC: RAD 16:54
PROVIDERS: PCP Family Medicine; Visit Provider Physician Assistant
DX: I83.813 Varicose veins of bilateral lower extremities with pain (principal)
CPT/HCPCS: 93970